=== PATIENT | female | born 1955 | race Hispanic/Latino ===

== ENCOUNTER 2018-01-11 02:59 | Inpatient (IN) | payer OTHER ==
[2018-01-11] VITALS (17 sets, daily range): BP systolic 66–135; BP diastolic 50–91
[~2018-01-11] VITALS: Ht 152.4 cm; Wt 83.8 kg
[2018-01-11] MEDS ORDERED: ATROPINE SULFATE 0.1 MG/ML 10 ML SYG IVP ONE (03:13)
[2018-01-11] MEDS ORDERED: LIDOCAINE HCL-MPF 2% 5ML VIAL ONE (03:13)
[2018-01-11] MEDS ORDERED: NITROGLYCERIN 5 MG/ML 10 ML VIAL IV ONE (03:13)
[2018-01-11] MEDS ORDERED: HEPARIN SODIUM 1000UNIT/ML 10ML VIAL ONE ×2 (03:13→06:07)
[2018-01-11] MEDS ORDERED: BIVALIRUDIN 250 MG/VIAL IV ONE (03:13)
[2018-01-11] MEDS ORDERED: DOPAMINE HCL 400 MG/D5%-WATER 0 ML IV ONE (03:14)
[2018-01-11] MEDS ORDERED: IOHEXOL 350 MG/ML 100ML INFUS..BTL IV ONE (03:14)
[2018-01-11] MEDS ORDERED: IOHEXOL-350 50ML VIAL IV ONE (03:14)
[2018-01-11] MEDS ORDERED: METOPROLOL TARTRATE 1 MG/ML 5ML VIAL IV ONE (04:14)
[2018-01-11] MEDS ORDERED: NITROGLYCERIN 50 MG/D5% WATER 1 BOT ONE ×2 (04:14→06:04)
[2018-01-11] MEDS ORDERED: SODIUM CHLORIDE 0.9% 1000ML 1,000 ML IV SCH ×3 (04:20→09:45)
[2018-01-11] MEDS ORDERED: METOPROLOL TARTRATE 25 MG TAB PO SCH (04:30)
[2018-01-11] MEDS ORDERED: DEXTROSE 50%-WATER 50 ML DISP.SYRIN IV PRN ×2 (04:30→09:45)
[2018-01-11] MEDS ORDERED: HEPARIN 25000 UNITS/250 ML D5W 250 ML IV PRN (04:30)
[2018-01-11] MEDS ORDERED: GLUCAGON 1MG KIT 1 MG ML IM PRN ×2 (04:30→09:45)
[2018-01-11 05:22] LABS: BASOPHILS % (AUTO) 0.4 % (0.0-5.0); EOSINOPHILS % (AUTO) 3.4 % (0.0-8.0); HEMATOCRIT 43.9 % (36-48); LYMPHOCYTES % (AUTO) 17.7 % (21.0-51.0); MEAN CORPUSCULAR HEMOGLOBIN 31.7 pg (27.0-33.0); MEAN CORPUSCULAR HGB CONC 33.9 g/dL (32.0-36.0); MEAN CORPUSCULAR VOLUME 93.6 fL (79-99); MONOCYTES % (AUTO) 7.2 % (3.0-13.0); NEUTROPHILS % (AUTO) 71.3 % (40.0-77.0); PLATELET COUNT (AUTO) 300 K/uL (130-400); RED BLOOD CELL COUNT(AUTO) 4.69 MIL/uL (4.00-5.50); RED CELL DISTRIBUTION WIDTH 13.3 % (11.0-15.5); WHITE BLOOD COUNT (AUTO) 13.1 K/uL (4.8-10.8)
[2018-01-11 05:40] LABS: HEMOGLOBIN A1C 6.5 % (4.0-6.0)
[2018-01-11] MEDS ORDERED: CLINDAMYCIN 600 MG/D5% WATER 50 ML IV ONE (05:48)
[2018-01-11 05:54] LABS: BASOPHILS % (AUTO) 1.1 % (0.0-5.0); EOSINOPHILS % (AUTO) 2.9 % (0.0-8.0); HEMATOCRIT 43.9 % (36-48); LYMPHOCYTES % (AUTO) 17.1 % (21.0-51.0); MEAN CORPUSCULAR HEMOGLOBIN 31.8 pg (27.0-33.0); MEAN CORPUSCULAR HGB CONC 33.6 g/dL (32.0-36.0); MEAN CORPUSCULAR VOLUME 94.5 fL (79-99); MONOCYTES % (AUTO) 7.5 % (3.0-13.0); NEUTROPHILS % (AUTO) 71.4 % (40.0-77.0); PLATELET COUNT (AUTO) 286 K/uL (130-400); RED BLOOD CELL COUNT(AUTO) 4.65 MIL/uL (4.00-5.50); WHITE BLOOD COUNT (AUTO) 13.5 K/uL (4.8-10.8)
[2018-01-11] MEDS ORDERED: CLINDAMYCIN 600 MG/D5% WATER 50 ML IV SCH (06:00)
[2018-01-11 06:05] LABS: ALBUMIN 3.6 g/dL (3.5-5.0); BILIRUBIN,TOTAL 0.5 mg/dL (0.2-1.0); CREATININE 0.7 mg/dL (0.5-1.5); MAGNESIUM 2.1 mg/dL (1.80-2.40); POTASSIUM 4.1 mmol/L (3.5-5.1); TOTAL PROTEIN, SERUM 7.7 g/dL (6.0-8.3)
[2018-01-11] MEDS ORDERED: EPINEPHRINE 1 MG/ML AMPULE ONE (06:07)
[2018-01-11] MEDS ORDERED: LIDOCAINE PF 2% 5ML ABBOJECT ONE ×2 (06:07→10:04)
[2018-01-11] MEDS ORDERED: SODIUM BICARB 50MEQ 50ML VIAL ONE (06:07)
[2018-01-11] MEDS ORDERED: AMINOCAPROIC ACID 250 MG/ML 20 ML VIAL IV ONE ×2 (06:07→12:00)
[2018-01-11] MEDS ORDERED: NOREPINEPHRINE BITARTRATE 1 MG/1 ML ML IV ONE ×4 (06:07→12:59)
[2018-01-11] MEDS ORDERED: ESMOLOL HCL 10 MG/ML 10 ML VIAL ONE (06:07)
[2018-01-11 06:08] LABS: TROPONIN I 38.94 ng/mL (0.00-0.06)
[2018-01-11] MEDS ORDERED: MIDAZOLAM HCL 1 MG/ML 5ML VIAL ONE (06:08)
[2018-01-11] MEDS ORDERED: VASOPRESSIN 20 UNITS/ML 1ML VIAL ONE (06:08)
[2018-01-11] MEDS ORDERED: FENTANYL CITRATE PF 50 MCG/1 ML 20ML VIAL IJ ONE ×3 (06:08→11:07)
[2018-01-11] MEDS ORDERED: PROPOFOL 10 MG/ML 20ML VIAL IV ONE (06:08)
[2018-01-11 06:09] LABS: MAGNESIUM 2.1 mg/dL (1.80-2.40); PHOSPHORUS 3.4 mg/dL (2.5-4.9)
[2018-01-11] MEDS ORDERED: THROMBIN-JMI 5000 UNIT/VIAL TP ONE (06:13)
[2018-01-11] MEDS ORDERED: DELNIDO FORMULA 0 BAG IV ONE (06:13)
[2018-01-11] MEDS ORDERED: ROCURONIUM 10MG/1ML SYR 10 MG/ML ML ONE ×2 (06:14→11:05)
[2018-01-11 06:15] LABS: INR 1.02 (0.85-1.15); PROTHROMBIN TIME 10.7 SEC (9.6-11.6)
[2018-01-11 06:37] LABS: B-TYPE NATRIURETIC PEPTIDE 106 pg/mL (0-100)
[2018-01-11] MEDS ORDERED: BACITRACIN 50,000 UNIT VIAL ONE (06:43)
[2018-01-11] MEDS ORDERED: OCTYL 2-CYANOACRYLATE 1 EACH TP ONE (06:43)
[2018-01-11] MEDS ORDERED: GLYCOPYRROLATE 1 MG/5 ML SYRINGE ONE (06:45)
[2018-01-11] MEDS ORDERED: LIDOCAINE HCL-MPF 1% 5ML AMP IJ ONE (06:59)
[2018-01-11 07:06] LABS: ABG BASE EXCESS -3.6 mmol/L (-2.0-3.0); ABG HCO3 18.1 mmol/L (21.0-28.0); ABG OXYGEN SATURATION 99.6 % (95.0-99.0); ABG PCO2 25 mmHg (32-45)
[2018-01-11 07:16] LABS: PARTIAL THROMBOPLASTIN TIME > 120.0 SEC (26.3-35.5)
[2018-01-11 07:56] LABS: ABG BASE EXCESS -0.4 mmol/L (-2.0-3.0); ABG HCO3 21.7 mmol/L (21.0-28.0); ABG OXYGEN SATURATION 99.3 % (95.0-99.0); ABG PCO2 28 mmHg (32-45)
[2018-01-11] MEDS ORDERED: AMIODARONE HCL 50 MG/ML 3 ML VIAL ONE (08:11)
[2018-01-11 08:17] LABS: ABG BASE EXCESS -1.7 mmol/L (-2.0-3.0); ABG HCO3 21.9 mmol/L (21.0-28.0); ABG OXYGEN SATURATION 99.4 % (95.0-99.0); ABG PCO2 34 mmHg (32-45)
[2018-01-11] MEDS: PANTOPRAZOLE SODIUM 40 MG TABLET.DR PO SCH (09:00)
[2018-01-11] MEDS ORDERED: ASPIRIN 325 MG TABLET PO SCH (09:00)
[2018-01-11] MEDS ORDERED: LISINOPRIL 5 MG TABLET PO SCH (09:00)
[2018-01-11 09:06] LABS: ABG HCO3 21.9 mmol/L (21.0-28.0); ABG OXYGEN SATURATION 98.6 % (95.0-99.0); ABG PCO2 34 mmHg (32-45)
[2018-01-11] MEDS ORDERED: ROCURONIUM BROMIDE 10MG/1ML 5ML VL ONE ×2 (09:28→11:08)
[2018-01-11] MEDS ORDERED: SODIUM CHLORIDE 0.9% 500ML 500 ML IV SCH (09:33)
[2018-01-11 09:39] LABS: ABG BASE EXCESS 2.9 mmol/L (-2.0-3.0); ABG HCO3 25.7 mmol/L (21.0-28.0); ABG OXYGEN SATURATION 98.3 % (95.0-99.0); ABG PCO2 33 mmHg (32-45)
[2018-01-11] MEDS ORDERED: SODIUM CHLORIDE 0.9% 10 ML VIAL IVP PRN (09:45)
[2018-01-11] MEDS ORDERED: ONDANSETRON HCL 4 MG/2 ML VIAL IV PRN (09:45)
[2018-01-11] MEDS ORDERED: PROPOFOL 1000 MG/100 ML 100 ML IV PRN (09:45)
[2018-01-11] MEDS ORDERED: EPINEPHRINE 8 MG in SODIUM CHLORIDE 0.9% 250 ML IV PRN (09:45)
[2018-01-11] MEDS ORDERED: ALBUMIN (HUMAN) 5% 250 ML IV PRN (09:45)
[2018-01-11] MEDS ORDERED: ACETAMINOPHEN 325 MG TAB PO PRN (09:45)
[2018-01-11] MEDS ORDERED: ACETAMINOPHEN 650 MG SUPPOSITORY RC PRN (09:45)
[2018-01-11] MEDS ORDERED: MORPHINE SULFATE 4 MG/1ML SYG IV PRN (09:45)
[2018-01-11] MEDS ORDERED: MORPHINE SULFATE 2 MG/ML 1ML SYG IV PRN (09:45)
[2018-01-11] MEDS ORDERED: NICARDIPINE HCL 100 MG in SODIUM CHLORIDE 0.9% 60 ML IV PRN (09:45)
[2018-01-11] MEDS ORDERED: INSULIN REGULAR, HUMAN 3ML 100 UNIT in SODIUM CHLORIDE 0.9% 99 ML IV SCH ×2 (09:45)
[2018-01-11] MEDS ORDERED: NOREPINEPHRINE 4MG/NS 250ML 250 ML IV PRN (09:45)
[2018-01-11] MEDS ORDERED: SODIUM CHLORIDE 0.9% 250 ML IV PRN (09:45)
[2018-01-11] MEDS ORDERED: NITROGLYCERIN 50 MG/D5% WATER 250 BOT IV SCH (09:45)
[2018-01-11] MEDS ORDERED: AMINOCAPROIC ACID 15,000 MG in SODIUM CHLORIDE 0.9% 250 ML IV SCH (09:45)
[2018-01-11 10:14] LABS: ABG BASE EXCESS -0.3 mmol/L (-2.0-3.0); ABG HCO3 23.3 mmol/L (21.0-28.0); ABG OXYGEN SATURATION 98.5 % (95.0-99.0); ABG PCO2 34 mmHg (32-45)
[2018-01-11] MEDS ORDERED: INSULIN HUMULIN R 100 UNIT/ML 3ML ONE (10:17)
[2018-01-11] MEDS ORDERED: PROTAMINE SULFATE 10 MG/ML 25ML VIAL IV ONE ×2 (10:25→10:39)
[2018-01-11 10:45] LABS: ABG BASE EXCESS 0.4 mmol/L (-2.0-3.0); ABG HCO3 24.8 mmol/L (21.0-28.0); ABG OXYGEN SATURATION 98.4 % (95.0-99.0); ABG PCO2 39 mmHg (32-45)
[2018-01-11 11:03] LABS: ABG BASE EXCESS -2.7 mmol/L (-2.0-3.0); ABG HCO3 22.1 mmol/L (21.0-28.0); ABG OXYGEN SATURATION 98.9 % (95.0-99.0); ABG PCO2 38 mmHg (32-45)
[2018-01-11 11:29] LABS: ABG BASE EXCESS -4.3 mmol/L (-2.0-3.0); ABG HCO3 21.2 mmol/L (21.0-28.0); ABG OXYGEN SATURATION 98.7 % (95.0-99.0); ABG PCO2 40 mmHg (32-45)
[2018-01-11] MEDS ORDERED: SODIUM BICARB 8.4% 50ML SYRINGE IVP ONE (12:00)
[2018-01-11] MEDS ORDERED: CALCIUM CHLORIDE 100 MG/ML 10 ML SYG IVP ONE (12:00)
[2018-01-11] MEDS ORDERED: ALBUMIN (HUMAN) 25% 50 ML IV ONE (12:00)
[2018-01-11] MEDS ORDERED: HEPARIN SODIUM 10000 UNIT/ML 1ML VIAL IJ ONE (12:00)
[2018-01-11] MEDS ORDERED: PHENYLEPHRINE HCL 10 MG/ML 1ML VIAL IV ONE (12:00)
[2018-01-11] MEDS ORDERED: MANNITOL 25% 50ML VIAL IV ONE (12:00)
[2018-01-11] MEDS ORDERED: HEPARIN SODIUM 1000UNIT/ML 10ML VIAL IV ONE ×2 (12:00)
[2018-01-11 12:02] LABS: ABG BASE EXCESS -0.6 mmol/L (-2.0-3.0); ABG OXYGEN SATURATION 98.7 % (95.0-99.0); ABG PCO2 33 mmHg (32-45)
[2018-01-11 12:23] LABS: ABG OXYGEN SATURATION 98.5 % (95.0-99.0); ABG PCO2 30 mmHg (32-45)
[2018-01-11 12:43] LABS: ABG BASE EXCESS -4.1 mmol/L (-2.0-3.0); ABG HCO3 20.9 mmol/L (21.0-28.0); ABG OXYGEN SATURATION 98.7 % (95.0-99.0); ABG PCO2 38 mmHg (32-45)
[2018-01-11 14:08] LABS: ABG BASE EXCESS 0.4 mmol/L (-2.0-3.0); ABG HCO3 25.4 mmol/L (21.0-28.0); ABG OXYGEN SATURATION 98.4 % (95.0-99.0); ABG PCO2 43 mmHg (32-45)
[2018-01-11] MEDS ORDERED: PHARMACY COMMUNICATION MISC SCH (14:15)
[2018-01-11] MEDS ORDERED: NOREPINEPHRINE BITARTRATE 8 MG in DEXTROSE 5%-WATER 250 ML IV PRN (14:15)
[2018-01-11 14:20] LABS: HEMATOCRIT 21.8 % (36-48); MEAN CORPUSCULAR HEMOGLOBIN 30.5 pg (27.0-33.0); MEAN CORPUSCULAR HGB CONC 34.1 g/dL (32.0-36.0); MEAN CORPUSCULAR VOLUME 89.6 fL (79-99); PLATELET COUNT (AUTO) 234 K/uL (130-400); RED BLOOD CELL COUNT(AUTO) 2.43 MIL/uL (4.00-5.50); RED CELL DISTRIBUTION WIDTH 14.3 % (11.0-15.5); WHITE BLOOD COUNT (AUTO) 18.2 K/uL (4.8-10.8)
[2018-01-11] MEDS: CALCIUM GLUCONATE 1 GM in SODIUM CHLORIDE 0.9% 50 ML IV PRN ×3 (14:21→16:49)
[2018-01-11] MEDS: POTASSIUM CHLORIDE 20MEQ/100ML 100 ML IV PRN ×3 (14:23→20:43)
[2018-01-11 14:31] LABS: INR 1.3 (0.85-1.15); PARTIAL THROMBOPLASTIN TIME 30.5 SEC (26.3-35.5); PROTHROMBIN TIME 13.6 SEC (9.6-11.6)
[2018-01-11 14:52] LABS: CREATININE 1.1 mg/dL (0.5-1.5); MAGNESIUM 1.6 mg/dL (1.80-2.40); PHOSPHORUS 2.8 mg/dL (2.5-4.9); POTASSIUM 3.1 mmol/L (3.5-5.1)
[2018-01-11] MEDS: IPRATROPIUM/ALBUTEROL SULFATE 3 ML SOLUTION IH SCH ×3 (15:03→23:48)
[2018-01-11 15:24] LABS: TROPONIN I 87.7 ng/mL (0.00-0.06)
[2018-01-11] MEDS: MAGNESIUM 2GM PREMIX 50ML 50 ML IV PRN (15:31)
[2018-01-11 16:38] LABS: ABG BASE EXCESS -5.3 mmol/L (-2.0-3.0); ABG HCO3 20.4 mmol/L (21.0-28.0); ABG OXYGEN SATURATION 96.7 % (95.0-99.0); ABG PCO2 40 mmHg (32-45)
[2018-01-11] MEDS: SODIUM BICARB 50MEQ 50ML VIAL IV PRN ×3 (16:44→21:08)
[2018-01-11] MEDS ORDERED: VASOPRESSIN 20 UNITS in DEXTROSE 5%-WATER 50 ML IV PRN (17:15)
[2018-01-11 17:17] LABS: INR 1.28 (0.85-1.15); PARTIAL THROMBOPLASTIN TIME 27.5 SEC (26.3-35.5); PROTHROMBIN TIME 13.4 SEC (9.6-11.6)
[2018-01-11] MEDS ORDERED: VASOPRESSIN 20 UNITS in SODIUM CHLORIDE 0.9% 50 ML IV PRN (17:34)
[2018-01-11] MEDS: CLINDAMYCIN 900 MG/D5% WATER 50 ML IV SCH (18:06)
[2018-01-11 18:56] LABS: ABG BASE EXCESS -1.9 mmol/L (-2.0-3.0); ABG HCO3 23.6 mmol/L (21.0-28.0); ABG OXYGEN SATURATION 95.8 % (95.0-99.0); ABG PCO2 44 mmHg (32-45)
[2018-01-11] MEDS ORDERED: CALCIUM GLUCONATE 1 GM/10 ML VIAL IV ONE ×2 (19:27→22:18)
[2018-01-11 20:05] LABS: ABG BASE EXCESS 2.3 mmol/L (-2.0-3.0); ABG OXYGEN SATURATION 96.6 % (95.0-99.0); ABG PCO2 43 mmHg (32-45)
[2018-01-11 20:52] LABS: ABG BASE EXCESS -4.1 mmol/L (-2.0-3.0); ABG HCO3 22.9 mmol/L (21.0-28.0); ABG OXYGEN SATURATION 93.3 % (95.0-99.0); ABG PCO2 51 mmHg (32-45)
[2018-01-11 22:17] LABS: ABG BASE EXCESS 3.7 mmol/L (-2.0-3.0); ABG HCO3 27.9 mmol/L (21.0-28.0); ABG PCO2 41 mmHg (32-45)
[2018-01-11 23:13] LABS: BASOPHILS % (AUTO) 0.7 % (0.0-5.0); HEMATOCRIT 23.9 % (36-48); LYMPHOCYTES % (AUTO) 11.6 % (21.0-51.0); MEAN CORPUSCULAR HEMOGLOBIN 28.8 pg (27.0-33.0); MEAN CORPUSCULAR HGB CONC 34.4 g/dL (32.0-36.0); MEAN CORPUSCULAR VOLUME 83.7 fL (79-99); MONOCYTES % (AUTO) 11.2 % (3.0-13.0); NEUTROPHILS % (AUTO) 76.5 % (40.0-77.0); PLATELET COUNT (AUTO) 205 K/uL (130-400); RED BLOOD CELL COUNT(AUTO) 2.86 MIL/uL (4.00-5.50); RED CELL DISTRIBUTION WIDTH 16.2 % (11.0-15.5)
[2018-01-11 23:23] LABS: CREATININE 1.3 mg/dL (0.5-1.5); POTASSIUM 4.1 mmol/L (3.5-5.1)
[2018-01-11 23:25] LABS: INR 1.15 (0.85-1.15); PARTIAL THROMBOPLASTIN TIME 34.5 SEC (26.3-35.5)
[2018-01-11 23:27] LABS: ALBUMIN 2.4 g/dL (3.5-5.0); MAGNESIUM 1.8 mg/dL (1.80-2.40); TOTAL PROTEIN, SERUM 4.8 g/dL (6.0-8.3)
[2018-01-11 23:29] LABS: ABG BASE EXCESS 0.4 mmol/L (-2.0-3.0); ABG HCO3 24.6 mmol/L (21.0-28.0); ABG OXYGEN SATURATION 96.5 % (95.0-99.0); ABG PCO2 38 mmHg (32-45)
[2018-01-12] VITALS (35 sets, daily range): BP systolic 72–157; BP diastolic 52–75
[2018-01-12] MEDS ORDERED: ACETAMINOPHEN ELIXIR 325 MG/10.15ML UDCUP ONE (00:38)
[2018-01-12 01:18] LABS: ABG BASE EXCESS 2.2 mmol/L (-2.0-3.0); ABG HCO3 26.9 mmol/L (21.0-28.0); ABG OXYGEN SATURATION 96.1 % (95.0-99.0); ABG PCO2 42 mmHg (32-45)
[2018-01-12] MEDS: CLINDAMYCIN 900 MG/D5% WATER 50 ML IV SCH ×2 (01:23→09:58)
[2018-01-12 02:21] LABS: ABG BASE EXCESS 2.5 mmol/L (-2.0-3.0); ABG OXYGEN SATURATION 96.7 % (95.0-99.0); ABG PCO2 36 mmHg (32-45)
[2018-01-12 02:54] LABS: APPEARANCE,URINE Clear (CLEAR); BILIRUBIN,URINE Negative (NEGATIVE); COLOR,URINE Dark Yellow (YELLOW); GLUCOSE, URINE (UA) Negative (NEGATIVE); KETONES,URINE Trace mg/dL (NEGATIVE); LEUKOCYTE ESTERASE ,URINE Negative (NEGATIVE); NITRATE,URINE Negative (NEGATIVE); OCCULT BLOOD,URINE Small (NEGATIVE); PROTEIN,URINE POS 1+ (NEGATIVE)
[2018-01-12 03:17] LABS: ABG BASE EXCESS 2.7 mmol/L (-2.0-3.0); ABG HCO3 26.5 mmol/L (21.0-28.0); ABG OXYGEN SATURATION 96.4 % (95.0-99.0); ABG PCO2 37 mmHg (32-45)
[2018-01-12 03:27] LABS: BACTERIA,URINE Few /HPF (None Seen); SQUAMOUS EPITHELIAL CELL,UR 0-2 /HPF (0-2); WBC,URINE 0-1 /HPF (0-1)
[2018-01-12] MEDS ORDERED: ALBUMIN (HUMAN) 5% 250 ML IV ONE (03:45)
[2018-01-12] MEDS ORDERED: VANCOMYCIN 1GM+NS 250ML 250 ML IV ONE (03:51)
[2018-01-12 03:55] LABS: HEMATOCRIT 22.4 % (36-48); MEAN CORPUSCULAR HEMOGLOBIN 28.1 pg (27.0-33.0); MEAN CORPUSCULAR VOLUME 82.7 fL (79-99); NUCLEATED RED BLOOD CELLS 0.1 % (0.0-0.19); PLATELET COUNT (AUTO) 155 K/uL (130-400); RED BLOOD CELL COUNT(AUTO) 2.71 MIL/uL (4.00-5.50); RED CELL DISTRIBUTION WIDTH 16.4 % (11.0-15.5); WHITE BLOOD COUNT (AUTO) 13.2 K/uL (4.8-10.8)
[2018-01-12] MEDS ORDERED: VANCOMYCIN 1GM+NS 250ML 250 ML IV SCH (04:00)
[2018-01-12 04:15] LABS: ALBUMIN 2.4 g/dL (3.5-5.0); BILIRUBIN,TOTAL 0.8 mg/dL (0.2-1.0); CREATININE 1.3 mg/dL (0.5-1.5); INR 1.19 (0.85-1.15); MAGNESIUM 1.7 mg/dL (1.80-2.40); PARTIAL THROMBOPLASTIN TIME 29.9 SEC (26.3-35.5); PHOSPHORUS 3.8 mg/dL (2.5-4.9); POTASSIUM 3.7 mmol/L (3.5-5.1); PROTHROMBIN TIME 12.5 SEC (9.6-11.6); TOTAL PROTEIN, SERUM 4.8 g/dL (6.0-8.3)
[2018-01-12 05:34] LABS: ABG HCO3 27.7 mmol/L (21.0-28.0); ABG OXYGEN SATURATION 94.5 % (95.0-99.0); ABG PCO2 43 mmHg (32-45)
[2018-01-12] MEDS ORDERED: VANCOMYCIN PROTOCOL PER PHARMACY IV SCH (05:45)
[2018-01-12] MEDS: IPRATROPIUM/ALBUTEROL SULFATE 3 ML SOLUTION IH SCH ×3 (06:15→18:50)
[2018-01-12] MEDS ORDERED: COMPOUND IV REFRIGERATED 1 EACH IVSOLN MISC PRN (06:45)
[2018-01-12] MEDS ORDERED: CALCIUM GLUCONATE 1 GM/10 ML VIAL IV ONE (06:47)
[2018-01-12 07:29] LABS: ABG BASE EXCESS -0.1 mmol/L (-2.0-3.0); ABG HCO3 24.1 mmol/L (21.0-28.0); ABG PCO2 37 mmHg (32-45)
[2018-01-12] MEDS: PANTOPRAZOLE SODIUM 40 MG TABLET.DR PO SCH ×2 (08:49→09:58)
[2018-01-12] MEDS: ASPIRIN 81MG TAB.CHEW PO SCH (09:58)
[2018-01-12] MEDS ORDERED: DEXTROSE 5%-WATER 1,000 ML IV SCH (10:00)
[2018-01-12] MEDS ORDERED: HEPARIN SODIUM SQ SCH (10:45)
[2018-01-12] MEDS ORDERED: DEXTROSE 5% SQ SCH (10:45)
[2018-01-12] MEDS ORDERED: WATER SQ SCH (10:45)
[2018-01-12] MEDS: HEPARIN SODIUM IV SCH (10:56)
[2018-01-12] MEDS: DEXTROSE 5% IV SCH (10:56)
[2018-01-12] MEDS: WATER IV SCH (10:56)
[2018-01-12] MEDS: ALBUMIN (HUMAN) 25% 50 ML IV SCH (11:20)
[2018-01-12 11:25] LABS: ABG BASE EXCESS 1.9 mmol/L (-2.0-3.0); ABG PCO2 39 mmHg (32-45)
[2018-01-12] MEDS ORDERED: FUROSEMIDE 10 MG/ML 2ML VIAL IV SCH (11:30)
[2018-01-12 13:14] LABS: BASOPHILS % (AUTO) 0.3 % (0.0-5.0); HEMATOCRIT 25.5 % (36-48); LYMPHOCYTES % (AUTO) 15.7 % (21.0-51.0); MEAN CORPUSCULAR HEMOGLOBIN 28.5 pg (27.0-33.0); MEAN CORPUSCULAR HGB CONC 33.7 g/dL (32.0-36.0); MEAN CORPUSCULAR VOLUME 84.7 fL (79-99); MONOCYTES % (AUTO) 9.4 % (3.0-13.0); NEUTROPHILS % (AUTO) 74.6 % (40.0-77.0); NUCLEATED RED BLOOD CELLS 0.2 % (0.0-0.19); PLATELET COUNT (AUTO) 112 K/uL (130-400); RED BLOOD CELL COUNT(AUTO) 3.01 MIL/uL (4.00-5.50); RED CELL DISTRIBUTION WIDTH 16.2 % (11.0-15.5); WHITE BLOOD COUNT (AUTO) 16.6 K/uL (4.8-10.8)
[2018-01-12 13:21] LABS: CREATININE 1.1 mg/dL (0.5-1.5); MAGNESIUM 1.8 mg/dL (1.80-2.40); POTASSIUM 3.4 mmol/L (3.5-5.1)
[2018-01-12] MEDS ORDERED: CALCIUM CHLORIDE 100 MG/ML 10 ML SYG IVP PRN (13:30)
[2018-01-12 13:33] LABS: INR 1.23 (0.85-1.15); PARTIAL THROMBOPLASTIN TIME 35.5 SEC (26.3-35.5); PROTHROMBIN TIME 12.9 SEC (9.6-11.6)
[2018-01-12] MEDS: POTASSIUM CHLORIDE 20MEQ/100ML 100 ML IV PRN ×3 (13:42→22:06)
[2018-01-12] MEDS: CALCIUM GLUCONATE 1 GM in SODIUM CHLORIDE 0.9% 50 ML IV PRN ×2 (14:04→17:00)
[2018-01-12] MEDS: TRAMADOL HCL 50 MG TABLET PO PRN (14:12)
[2018-01-12] MEDS: MORPHINE SULFATE 2 MG/ML 1ML SYG IVP PRN (14:53)
[2018-01-12] MEDS: MAGNESIUM 2GM PREMIX 50ML 50 ML IV PRN (14:58)
[2018-01-12 15:54] LABS: ABG BASE EXCESS 4.5 mmol/L (-2.0-3.0); ABG HCO3 27.1 mmol/L (21.0-28.0); ABG OXYGEN SATURATION 95.7 % (95.0-99.0); ABG PCO2 34 mmHg (32-45)
[2018-01-12 16:27] LABS: BASOPHILS % (AUTO) 0.2 % (0.0-5.0); HEMATOCRIT 22.2 % (36-48); LYMPHOCYTES % (AUTO) 15.9 % (21.0-51.0); MEAN CORPUSCULAR HEMOGLOBIN 28.5 pg (27.0-33.0); MEAN CORPUSCULAR HGB CONC 33.9 g/dL (32.0-36.0); MEAN CORPUSCULAR VOLUME 84.1 fL (79-99); MONOCYTES % (AUTO) 11.7 % (3.0-13.0); NEUTROPHILS % (AUTO) 72.2 % (40.0-77.0); NUCLEATED RED BLOOD CELLS 0.2 % (0.0-0.19); PLATELET COUNT (AUTO) 94 K/uL (130-400); RED BLOOD CELL COUNT(AUTO) 2.64 MIL/uL (4.00-5.50); RED CELL DISTRIBUTION WIDTH 16.1 % (11.0-15.5); WHITE BLOOD COUNT (AUTO) 14.8 K/uL (4.8-10.8)
[2018-01-12 16:40] LABS: INR 1.28 (0.85-1.15); PARTIAL THROMBOPLASTIN TIME 49.1 SEC (26.3-35.5); PROTHROMBIN TIME 13.4 SEC (9.6-11.6)
[2018-01-12 16:46] LABS: CREATININE 1.1 mg/dL (0.5-1.5); MAGNESIUM 1.8 mg/dL (1.80-2.40); POTASSIUM 3.6 mmol/L (3.5-5.1)
[2018-01-12 20:54] LABS: ABG BASE EXCESS 5.5 mmol/L (-2.0-3.0); ABG HCO3 29.5 mmol/L (21.0-28.0); ABG OXYGEN SATURATION 94.3 % (95.0-99.0); ABG PCO2 41 mmHg (32-45)
[2018-01-12 21:06] LABS: BASOPHILS % (AUTO) 0.2 % (0.0-5.0); HEMATOCRIT 25.9 % (36-48); LYMPHOCYTES % (AUTO) 15.9 % (21.0-51.0); MEAN CORPUSCULAR HEMOGLOBIN 28.4 pg (27.0-33.0); MEAN CORPUSCULAR HGB CONC 33.6 g/dL (32.0-36.0); MEAN CORPUSCULAR VOLUME 84.5 fL (79-99); MONOCYTES % (AUTO) 9.3 % (3.0-13.0); NEUTROPHILS % (AUTO) 74.6 % (40.0-77.0); NUCLEATED RED BLOOD CELLS 0.2 % (0.0-0.19); PLATELET COUNT (AUTO) 84 K/uL (130-400); RED BLOOD CELL COUNT(AUTO) 3.07 MIL/uL (4.00-5.50); RED CELL DISTRIBUTION WIDTH 15.7 % (11.0-15.5); WHITE BLOOD COUNT (AUTO) 15.1 K/uL (4.8-10.8)
[2018-01-12] MEDS: FUROSEMIDE 10 MG/ML 2ML VIAL IV SCH (21:12)
[2018-01-12] MEDS: ATORVASTATIN CALCIUM 40 MG TABLET PO SCH (21:14)
[2018-01-12] MEDS: VANCOMYCIN 1.25 GM in SODIUM CHLORIDE 0.9% 250 ML IV SCH (21:14)
[2018-01-12 21:20] LABS: INR 1.28 (0.85-1.15); PARTIAL THROMBOPLASTIN TIME 53.3 SEC (26.3-35.5); PROTHROMBIN TIME 13.4 SEC (9.6-11.6)
[2018-01-12 21:26] LABS: CREATININE 0.9 mg/dL (0.5-1.5); MAGNESIUM 2.1 mg/dL (1.80-2.40); POTASSIUM 3.9 mmol/L (3.5-5.1)
[2018-01-12] MEDS: FUROSEMIDE 100 MG in SODIUM CHLORIDE 0.9% 90 ML IV SCH (21:56)
[2018-01-13] VITALS (35 sets, daily range): BP systolic 92–208; BP diastolic 49–110
[2018-01-13] MEDS: IPRATROPIUM/ALBUTEROL SULFATE 3 ML SOLUTION IH SCH ×5 (00:17→23:42)
[2018-01-13 00:24] LABS: ABG BASE EXCESS 5.8 mmol/L (-2.0-3.0); ABG HCO3 29.1 mmol/L (21.0-28.0); ABG OXYGEN SATURATION 91.8 % (95.0-99.0); ABG PCO2 38 mmHg (32-45)
[2018-01-13 00:31] LABS: HEMATOCRIT 27.4 % (36-48); MEAN CORPUSCULAR HEMOGLOBIN 29.1 pg (27.0-33.0); MEAN CORPUSCULAR HGB CONC 34.5 g/dL (32.0-36.0); MEAN CORPUSCULAR VOLUME 84.6 fL (79-99); NUCLEATED RED BLOOD CELLS 0.4 % (0.0-0.19); PLATELET COUNT (AUTO) 94 K/uL (130-400); RED BLOOD CELL COUNT(AUTO) 3.24 MIL/uL (4.00-5.50); RED CELL DISTRIBUTION WIDTH 16.1 % (11.0-15.5); WHITE BLOOD COUNT (AUTO) 16.9 K/uL (4.8-10.8)
[2018-01-13 00:37] LABS: CREATININE 0.9 mg/dL (0.5-1.5); MAGNESIUM 1.9 mg/dL (1.80-2.40); POTASSIUM 3.5 mmol/L (3.5-5.1)
[2018-01-13 00:38] LABS: INR 1.25 (0.85-1.15); PARTIAL THROMBOPLASTIN TIME 50.5 SEC (26.3-35.5); PROTHROMBIN TIME 13.1 SEC (9.6-11.6)
[2018-01-13] MEDS: MAGNESIUM 2GM PREMIX 50ML 50 ML IV PRN (00:48)
[2018-01-13] MEDS: POTASSIUM CHLORIDE 20MEQ/100ML 100 ML IV PRN ×8 (00:48→22:06)
[2018-01-13 04:03] LABS: ABG BASE EXCESS 6.1 mmol/L (-2.0-3.0); ABG HCO3 29.2 mmol/L (21.0-28.0); ABG PCO2 37 mmHg (32-45)
[2018-01-13 04:17] LABS: BASOPHILS % (AUTO) 0.3 % (0.0-5.0); HEMATOCRIT 26.5 % (36-48); LYMPHOCYTES % (AUTO) 14.1 % (21.0-51.0); MEAN CORPUSCULAR HEMOGLOBIN 29.2 pg (27.0-33.0); MEAN CORPUSCULAR HGB CONC 34.6 g/dL (32.0-36.0); MEAN CORPUSCULAR VOLUME 84.5 fL (79-99); MONOCYTES % (AUTO) 8.7 % (3.0-13.0); NEUTROPHILS % (AUTO) 76.9 % (40.0-77.0); NUCLEATED RED BLOOD CELLS 0.5 % (0.0-0.19); PLATELET COUNT (AUTO) 100 K/uL (130-400); RED BLOOD CELL COUNT(AUTO) 3.13 MIL/uL (4.00-5.50); RED CELL DISTRIBUTION WIDTH 16.1 % (11.0-15.5); WHITE BLOOD COUNT (AUTO) 18.2 K/uL (4.8-10.8)
[2018-01-13 04:30] LABS: INR 1.21 (0.85-1.15); PARTIAL THROMBOPLASTIN TIME 48.3 SEC (26.3-35.5); PROTHROMBIN TIME 12.7 SEC (9.6-11.6)
[2018-01-13 04:54] LABS: ALBUMIN 2.8 g/dL (3.5-5.0); BILIRUBIN,TOTAL 0.9 mg/dL (0.2-1.0); CREATININE 0.9 mg/dL (0.5-1.5); MAGNESIUM 2.4 mg/dL (1.80-2.40); POTASSIUM 3.6 mmol/L (3.5-5.1); TOTAL PROTEIN, SERUM 5.5 g/dL (6.0-8.3)
[2018-01-13] MEDS: CALCIUM GLUCONATE 1 GM in SODIUM CHLORIDE 0.9% 50 ML IV PRN ×4 (06:48→21:47)
[2018-01-13] MEDS ORDERED: MEROPENEM 1 GM VIAL IVP SCH (07:15)
[2018-01-13] MEDS: MEROPENEM 1 GM VIAL IVP SCH ×2 (07:30→21:24)
[2018-01-13 07:55] LABS: ABG BASE EXCESS 7.5 mmol/L (-2.0-3.0); ABG HCO3 30.5 mmol/L (21.0-28.0); ABG OXYGEN SATURATION 94.7 % (95.0-99.0); ABG PCO2 37 mmHg (32-45)
[2018-01-13 08:00] LABS: NUCLEATED RED BLOOD CELLS 0.4 % (0.0-0.19); PLATELET COUNT (AUTO) 94 K/uL (130-400)
[2018-01-13 08:05] LABS: BASOPHILS % (AUTO) 0.3 % (0.0-5.0); HEMATOCRIT 25.5 % (36-48); LYMPHOCYTES % (AUTO) 13.7 % (21.0-51.0); MEAN CORPUSCULAR HEMOGLOBIN 29.2 pg (27.0-33.0); MEAN CORPUSCULAR HGB CONC 34.4 g/dL (32.0-36.0); MEAN CORPUSCULAR VOLUME 84.7 fL (79-99); MONOCYTES % (AUTO) 8.1 % (3.0-13.0); NEUTROPHILS % (AUTO) 77.9 % (40.0-77.0); RED BLOOD CELL COUNT(AUTO) 3.01 MIL/uL (4.00-5.50); RED CELL DISTRIBUTION WIDTH 16.1 % (11.0-15.5); WHITE BLOOD COUNT (AUTO) 18.8 K/uL (4.8-10.8)
[2018-01-13] MEDS: ASPIRIN 81MG TAB.CHEW PO SCH (08:09)
[2018-01-13] MEDS: PANTOPRAZOLE SODIUM 40 MG TABLET.DR PO SCH ×2 (08:09→09:00)
[2018-01-13 08:15] LABS: ALBUMIN 2.7 g/dL (3.5-5.0); BILIRUBIN,TOTAL 0.8 mg/dL (0.2-1.0); CREATININE 0.9 mg/dL (0.5-1.5); MAGNESIUM 2.1 mg/dL (1.80-2.40); TOTAL PROTEIN, SERUM 5.3 g/dL (6.0-8.3)
[2018-01-13 08:17] LABS: INR 1.19 (0.85-1.15); PARTIAL THROMBOPLASTIN TIME 46.6 SEC (26.3-35.5); PROTHROMBIN TIME 12.5 SEC (9.6-11.6)
[2018-01-13] MEDS: MORPHINE SULFATE 2 MG/ML 1ML SYG IVP PRN ×2 (08:40→21:36)
[2018-01-13] MEDS: FUROSEMIDE 10 MG/ML 2ML VIAL IV SCH (09:00)
[2018-01-13] MEDS: ALBUMIN (HUMAN) 25% 50 ML IV SCH ×3 (09:05→21:25)
[2018-01-13] MEDS: TRAMADOL HCL 50 MG TABLET PO PRN (10:04)
[2018-01-13] MEDS: HEPARIN SODIUM IV SCH (10:45)
[2018-01-13] MEDS: DEXTROSE 5% IV SCH (10:45)
[2018-01-13] MEDS: WATER IV SCH (10:45)
[2018-01-13 11:53] LABS: BASOPHILS % (AUTO) 0.3 % (0.0-5.0); HEMATOCRIT 23.6 % (36-48); MEAN CORPUSCULAR HEMOGLOBIN 29.2 pg (27.0-33.0); MEAN CORPUSCULAR HGB CONC 34.3 g/dL (32.0-36.0); MEAN CORPUSCULAR VOLUME 85.3 fL (79-99); MONOCYTES % (AUTO) 8.2 % (3.0-13.0); NEUTROPHILS % (AUTO) 77.5 % (40.0-77.0); NUCLEATED RED BLOOD CELLS 0.6 % (0.0-0.19); PLATELET COUNT (AUTO) 84 K/uL (130-400); RED BLOOD CELL COUNT(AUTO) 2.77 MIL/uL (4.00-5.50); RED CELL DISTRIBUTION WIDTH 16.3 % (11.0-15.5); WHITE BLOOD COUNT (AUTO) 18.4 K/uL (4.8-10.8)
[2018-01-13 12:06] LABS: INR 1.16 (0.85-1.15); PARTIAL THROMBOPLASTIN TIME 48.6 SEC (26.3-35.5); PROTHROMBIN TIME 12.1 SEC (9.6-11.6)
[2018-01-13 12:20] LABS: ABG BASE EXCESS 7.2 mmol/L (-2.0-3.0); ABG HCO3 31.8 mmol/L (21.0-28.0); ABG OXYGEN SATURATION 97.4 % (95.0-99.0); ABG PCO2 45 mmHg (32-45)
[2018-01-13 12:22] LABS: BILIRUBIN,DIRECT 0.3 mg/dL (0.0-0.3); BILIRUBIN,TOTAL 0.8 mg/dL (0.2-1.0); MAGNESIUM 2.1 mg/dL (1.80-2.40); PHOSPHORUS 2.7 mg/dL (2.5-4.9); POTASSIUM 4.1 mmol/L (3.5-5.1)
[2018-01-13] MEDS: FUROSEMIDE 100 MG in SODIUM CHLORIDE 0.9% 90 ML IV SCH (15:32)
[2018-01-13] MEDS: DOBUTAMINE 250MG/D5 250ML 250 ML IV SCH (17:00)
[2018-01-13 17:29] LABS: ABG BASE EXCESS 5.7 mmol/L (-2.0-3.0); ABG HCO3 29.3 mmol/L (21.0-28.0); ABG OXYGEN SATURATION 95.5 % (95.0-99.0); ABG PCO2 39 mmHg (32-45)
[2018-01-13 17:34] LABS: BASOPHILS % (AUTO) 0.3 % (0.0-5.0); HEMATOCRIT 21.6 % (36-48); LYMPHOCYTES % (AUTO) 16.6 % (21.0-51.0); MEAN CORPUSCULAR HEMOGLOBIN 29.3 pg (27.0-33.0); MEAN CORPUSCULAR HGB CONC 34.4 g/dL (32.0-36.0); MEAN CORPUSCULAR VOLUME 85.3 fL (79-99); MONOCYTES % (AUTO) 7.7 % (3.0-13.0); NEUTROPHILS % (AUTO) 75.4 % (40.0-77.0); NUCLEATED RED BLOOD CELLS 1.1 % (0.0-0.19); PLATELET COUNT (AUTO) 80 K/uL (130-400); RED BLOOD CELL COUNT(AUTO) 2.53 MIL/uL (4.00-5.50); RED CELL DISTRIBUTION WIDTH 16.3 % (11.0-15.5); WHITE BLOOD COUNT (AUTO) 16.2 K/uL (4.8-10.8)
[2018-01-13 17:43] LABS: MAGNESIUM 2.1 mg/dL (1.80-2.40); POTASSIUM 3.9 mmol/L (3.5-5.1)
[2018-01-13] MEDS: ATORVASTATIN CALCIUM 40 MG TABLET PO SCH (21:24)
[2018-01-13 21:33] LABS: ABG BASE EXCESS 5.8 mmol/L (-2.0-3.0); ABG HCO3 27.6 mmol/L (21.0-28.0); ABG OXYGEN SATURATION 99.1 % (95.0-99.0); ABG PCO2 32 mmHg (32-45)
[2018-01-13 21:47] LABS: MEAN CORPUSCULAR HEMOGLOBIN 29.4 pg (27.0-33.0); MEAN CORPUSCULAR HGB CONC 33.9 g/dL (32.0-36.0); MEAN CORPUSCULAR VOLUME 86.9 fL (79-99); NUCLEATED RED BLOOD CELLS 0.3 % (0.0-0.19); PLATELET COUNT (AUTO) 67 K/uL (130-400); RED BLOOD CELL COUNT(AUTO) 2.88 MIL/uL (4.00-5.50); WHITE BLOOD COUNT (AUTO) 14.5 K/uL (4.8-10.8)
[2018-01-13 21:59] LABS: CREATININE 0.9 mg/dL (0.5-1.5); POTASSIUM 3.8 mmol/L (3.5-5.1)
[2018-01-13 22:02] LABS: INR 1.05 (0.85-1.15); PARTIAL THROMBOPLASTIN TIME 43.9 SEC (26.3-35.5)
[2018-01-13] MEDS: VANCOMYCIN 1.25 GM in SODIUM CHLORIDE 0.9% 250 ML IV SCH (22:12)
[2018-01-13 22:14] LABS: PLATELET MORPHOLOGY COMMENT DECREASED
[2018-01-14] VITALS (23 sets, daily range): BP systolic 54–138; BP diastolic 44–86
[2018-01-14] MEDS: POTASSIUM CHLORIDE 20MEQ/100ML 100 ML IV PRN ×5 (00:04→23:18)
[2018-01-14] MEDS: MORPHINE SULFATE 2 MG/ML 1ML SYG IVP PRN ×4 (01:23→20:32)
[2018-01-14 05:29] LABS: ABG HCO3 32.8 mmol/L (21.0-28.0); ABG OXYGEN SATURATION 98.3 % (95.0-99.0); ABG PCO2 42 mmHg (32-45)
[2018-01-14 05:44] LABS: HEMATOCRIT 23.6 % (36-48); MEAN CORPUSCULAR HEMOGLOBIN 28.7 pg (27.0-33.0); MEAN CORPUSCULAR HGB CONC 32.9 g/dL (32.0-36.0); MEAN CORPUSCULAR VOLUME 87.1 fL (79-99); NUCLEATED RED BLOOD CELLS 0.3 % (0.0-0.19); PLATELET COUNT (AUTO) 56 K/uL (130-400); RED BLOOD CELL COUNT(AUTO) 2.71 MIL/uL (4.00-5.50); RED CELL DISTRIBUTION WIDTH 15.5 % (11.0-15.5)
[2018-01-14 05:55] LABS: INR 1.02 (0.85-1.15); PARTIAL THROMBOPLASTIN TIME 45.6 SEC (26.3-35.5); PROTHROMBIN TIME 10.7 SEC (9.6-11.6)
[2018-01-14 05:56] LABS: CREATININE 0.9 mg/dL (0.5-1.5); MAGNESIUM 1.9 mg/dL (1.80-2.40); PHOSPHORUS 2.7 mg/dL (2.5-4.9); POTASSIUM 3.9 mmol/L (3.5-5.1)
[2018-01-14] MEDS: MAGNESIUM 2GM PREMIX 50ML 50 ML IV PRN (06:05)
[2018-01-14] MEDS: IPRATROPIUM/ALBUTEROL SULFATE 3 ML SOLUTION IH SCH ×4 (06:20→23:08)
[2018-01-14] MEDS: CALCIUM GLUCONATE 1 GM in SODIUM CHLORIDE 0.9% 50 ML IV PRN (07:17)
[2018-01-14] MEDS: MEROPENEM 1 GM VIAL IVP SCH ×2 (07:52→19:29)
[2018-01-14] MEDS: DEXTROSE 5% IV SCH (10:45)
[2018-01-14] MEDS: WATER IV SCH (10:45)
[2018-01-14] MEDS: HEPARIN SODIUM IV SCH (10:45)
[2018-01-14] MEDS: PANTOPRAZOLE 40 MG/VIAL IVP SCH (10:46)
[2018-01-14] MEDS ORDERED: SODIUM CHLORIDE 0.9% 1000ML 1,000 ML IV ONE (11:12)
[2018-01-14] MEDS ORDERED: NOREPINEPHRINE BITARTRATE 1 MG/1 ML ML IV ONE ×2 (11:45→12:23)
[2018-01-14] MEDS ORDERED: KETAMINE 50MG/ML SYRINGE 50 MG/ML DISP.SYRIN IV ONE (12:13)
[2018-01-14] MEDS ORDERED: DELNIDO FORMULA 0 BAG IV ONE (12:26)
[2018-01-14 13:08] LABS: ABG BASE EXCESS 7.8 mmol/L (-2.0-3.0); ABG HCO3 29.1 mmol/L (21.0-28.0); ABG OXYGEN SATURATION 97.8 % (95.0-99.0); ABG PCO2 29 mmHg (32-45)
[2018-01-14] MEDS ORDERED: FENTANYL CITRATE PF 50 MCG/1 ML 2ML VIAL ONE ×2 (13:11→13:12)
[2018-01-14] MEDS ORDERED: BACITRACIN 50,000 UNIT VIAL ONE (13:33)
[2018-01-14] MEDS ORDERED: OCTYL 2-CYANOACRYLATE 1 EACH TP ONE (14:15)
[2018-01-14] MEDS ORDERED: GLYCOPYRROLATE 1 MG/5 ML SYRINGE ONE (14:22)
[2018-01-14 15:05] LABS: ABG BASE EXCESS 0.7 mmol/L (-2.0-3.0); ABG HCO3 25.1 mmol/L (21.0-28.0); ABG OXYGEN SATURATION 92.8 % (95.0-99.0); ABG PCO2 39 mmHg (32-45)
[2018-01-14 15:36] LABS: HEMATOCRIT 25.7 % (36-48); MEAN CORPUSCULAR HEMOGLOBIN 29.5 pg (27.0-33.0); MEAN CORPUSCULAR HGB CONC 33.5 g/dL (32.0-36.0); MEAN CORPUSCULAR VOLUME 88.1 fL (79-99); NUCLEATED RED BLOOD CELLS 0.5 % (0.0-0.19); PLATELET COUNT (AUTO) 92 K/uL (130-400); RED BLOOD CELL COUNT(AUTO) 2.92 MIL/uL (4.00-5.50); RED CELL DISTRIBUTION WIDTH 15.1 % (11.0-15.5); WHITE BLOOD COUNT (AUTO) 15.5 K/uL (4.8-10.8)
[2018-01-14 15:46] LABS: CREATININE 0.8 mg/dL (0.5-1.5); POTASSIUM 3.8 mmol/L (3.5-5.1)
[2018-01-14 15:49] LABS: MAGNESIUM 2.1 mg/dL (1.80-2.40); PHOSPHORUS 2.5 mg/dL (2.5-4.9)
[2018-01-14] MEDS: ASPIRIN 81MG TAB.CHEW PO SCH (16:21)
[2018-01-14] MEDS: DOBUTAMINE 250MG/D5 250ML 250 ML IV SCH (16:21)
[2018-01-14] MEDS: ATORVASTATIN CALCIUM 40 MG TABLET PO SCH (20:11)
[2018-01-14 20:57] LABS: PHOSPHORUS 3.2 mg/dL (2.5-4.9); POTASSIUM 3.8 mmol/L (3.5-5.1)
[2018-01-14] MEDS ORDERED: VANCOMYCIN 1.5 GM in SODIUM CHLORIDE 0.9% 250 ML IV SCH (21:30)
[2018-01-14] MEDS: TRAMADOL HCL 50 MG TABLET PO PRN (23:00)
[2018-01-15] VITALS (24 sets, daily range): BP systolic 91–125; BP diastolic 45–56
[2018-01-15 04:41] LABS: ABG BASE EXCESS 6.3 mmol/L (-2.0-3.0); ABG HCO3 30.9 mmol/L (21.0-28.0); ABG OXYGEN SATURATION 97.7 % (95.0-99.0); ABG PCO2 44 mmHg (32-45)
[2018-01-15 04:55] LABS: BASOPHILS % (AUTO) 0.4 % (0.0-5.0); EOSINOPHILS % (AUTO) 1.3 % (0.0-8.0); HEMATOCRIT 24.3 % (36-48); MEAN CORPUSCULAR HEMOGLOBIN 30.7 pg (27.0-33.0); MEAN CORPUSCULAR HGB CONC 34.3 g/dL (32.0-36.0); MEAN CORPUSCULAR VOLUME 89.4 fL (79-99); MONOCYTES % (AUTO) 8.2 % (3.0-13.0); NEUTROPHILS % (AUTO) 76.1 % (40.0-77.0); NUCLEATED RED BLOOD CELLS 0.4 % (0.0-0.19); PLATELET COUNT (AUTO) 113 K/uL (130-400); RED BLOOD CELL COUNT(AUTO) 2.72 MIL/uL (4.00-5.50); RED CELL DISTRIBUTION WIDTH 15.1 % (11.0-15.5); WHITE BLOOD COUNT (AUTO) 14.3 K/uL (4.8-10.8)
[2018-01-15 05:02] LABS: INR 1.02 (0.85-1.15); PARTIAL THROMBOPLASTIN TIME 27.5 SEC (26.3-35.5); PROTHROMBIN TIME 10.7 SEC (9.6-11.6)
[2018-01-15 05:06] LABS: CREATININE 0.8 mg/dL (0.5-1.5); PHOSPHORUS 2.6 mg/dL (2.5-4.9); POTASSIUM 3.9 mmol/L (3.5-5.1)
[2018-01-15] MEDS: POTASSIUM CHLORIDE 20MEQ/100ML 100 ML IV PRN ×3 (05:13→19:39)
[2018-01-15] MEDS: IPRATROPIUM/ALBUTEROL SULFATE 3 ML SOLUTION IH SCH ×4 (06:24→23:31)
[2018-01-15] MEDS: MEROPENEM 1 GM VIAL IVP SCH ×2 (06:49→18:30)
[2018-01-15 09:04] LABS: ABG BASE EXCESS 5.4 mmol/L (-2.0-3.0); ABG HCO3 28.9 mmol/L (21.0-28.0); ABG OXYGEN SATURATION 95.7 % (95.0-99.0); ABG PCO2 38 mmHg (32-45)
[2018-01-15] MEDS: PANTOPRAZOLE 40 MG/VIAL IVP SCH (09:29)
[2018-01-15] MEDS: VANCOMYCIN 1GM+NS 250ML 250 ML IV SCH ×2 (09:30→21:04)
[2018-01-15] MEDS: ASPIRIN 81MG TAB.CHEW PO SCH (09:30)
[2018-01-15] MEDS: TRAMADOL HCL 50 MG TABLET PO PRN ×2 (11:50→23:12)
[2018-01-15] MEDS ORDERED: PHARMACY COMMUNICATION MISC SCH ×2 (12:00→16:00)
[2018-01-15] MEDS ORDERED: DEXAMETHASONE SOD PHOSPHATE 10MG/ML 1ML VIAL IV SCH (12:45)
[2018-01-15] MEDS: ENOXAPARIN SODIUM 30 MG/0.3 ML SQ SCH (14:30)
[2018-01-15] MEDS: SPIRONOLACTONE 25 MG TAB PO SCH (15:22)
[2018-01-15] MEDS: FUROSEMIDE 10 MG/ML 2ML VIAL IV SCH ×2 (15:23→22:52)
[2018-01-15] MEDS: MORPHINE SULFATE 2 MG/ML 1ML SYG IVP PRN (15:25)
[2018-01-15] MEDS: PROPOFOL 1000 MG/100 ML IV PRN ×2 (15:55→20:36)
[2018-01-15] MEDS: DOBUTAMINE 250MG/D5 250ML 250 ML IV SCH ×2 (15:56→17:45)
[2018-01-15] MEDS ORDERED: DEXAMETHASONE SOD PHOSPHATE 4 MG/ML 1ML VIAL IVP SCH (16:45)
[2018-01-15] MEDS: ARTIFICAL TEARS SOL 15 ML OU SCH ×2 (18:33→21:43)
[2018-01-15] MEDS: CALCIUM GLUCONATE 1 GM in SODIUM CHLORIDE 0.9% 50 ML IV PRN (19:28)
[2018-01-15] MEDS: DOXYCYCLINE HYCLATE 100 MG TABLET PO SCH (19:52)
[2018-01-15] MEDS: ATORVASTATIN CALCIUM 40 MG TABLET PO SCH (19:52)
[2018-01-15] MEDS ORDERED: FUROSEMIDE 10 MG/ML 4ML VIAL IV SCH (21:00)
[2018-01-16] VITALS (24 sets, daily range): BP systolic 91–145; BP diastolic 45–58
[2018-01-16] MEDS: ARTIFICAL TEARS SOL 15 ML OU SCH ×4 (04:12→21:58)
[2018-01-16 04:24] LABS: ABG BASE EXCESS 4.9 mmol/L (-2.0-3.0); ABG HCO3 28.7 mmol/L (21.0-28.0); ABG OXYGEN SATURATION 91.8 % (95.0-99.0); ABG PCO2 40 mmHg (32-45)
[2018-01-16 04:29] LABS: HEMATOCRIT 24.8 % (36-48); MEAN CORPUSCULAR HEMOGLOBIN 29.5 pg (27.0-33.0); MEAN CORPUSCULAR VOLUME 89.3 fL (79-99); NUCLEATED RED BLOOD CELLS 0.6 % (0.0-0.19); PLATELET COUNT (AUTO) 118 K/uL (130-400); RED BLOOD CELL COUNT(AUTO) 2.78 MIL/uL (4.00-5.50); RED CELL DISTRIBUTION WIDTH 15.3 % (11.0-15.5); WHITE BLOOD COUNT (AUTO) 16.9 K/uL (4.8-10.8)
[2018-01-16] MEDS: CALCIUM GLUCONATE 1 GM in SODIUM CHLORIDE 0.9% 50 ML IV PRN ×2 (04:33→13:40)
[2018-01-16] MEDS: PROPOFOL 1000 MG/100 ML IV PRN (04:39)
[2018-01-16 04:47] LABS: ALBUMIN 2.5 g/dL (3.5-5.0); BILIRUBIN,TOTAL 1.2 mg/dL (0.2-1.0); CREATININE 0.7 mg/dL (0.5-1.5); MAGNESIUM 2.2 mg/dL (1.80-2.40); PHOSPHORUS 2.3 mg/dL (2.5-4.9); POTASSIUM 3.9 mmol/L (3.5-5.1); TOTAL PROTEIN, SERUM 5.8 g/dL (6.0-8.3)
[2018-01-16] MEDS: POTASSIUM CHLORIDE 20MEQ/100ML 100 ML IV PRN ×5 (05:02→22:30)
[2018-01-16] MEDS: FUROSEMIDE 10 MG/ML 2ML VIAL IV SCH (05:55)
[2018-01-16] MEDS: IPRATROPIUM/ALBUTEROL SULFATE 3 ML SOLUTION IH SCH ×2 (06:32→11:24)
[2018-01-16] MEDS: MEROPENEM 1 GM VIAL IVP SCH ×2 (06:44→17:56)
[2018-01-16] MEDS ORDERED: FUROSEMIDE 10 MG/ML 4ML VIAL IV SCH (06:45)
[2018-01-16] MEDS: POTASSIUM PHOS 15 mMOL+NS250ML 250 ML IV PRN (06:46)
[2018-01-16] MEDS: SPIRONOLACTONE 25 MG TAB PO SCH (08:20)
[2018-01-16] MEDS: DOXYCYCLINE HYCLATE 100 MG TABLET PO SCH ×2 (08:20→20:07)
[2018-01-16] MEDS: ASPIRIN 81MG TAB.CHEW PO SCH (08:20)
[2018-01-16] MEDS: CLOPIDOGREL BISULFATE 75 MG TAB PO SCH (08:20)
[2018-01-16] MEDS: PANTOPRAZOLE 40 MG/VIAL IVP SCH (08:21)
[2018-01-16] MEDS: ENOXAPARIN SODIUM 30 MG/0.3 ML SQ SCH (08:21)
[2018-01-16] MEDS: VANCOMYCIN 1GM+NS 250ML 250 ML IV SCH ×2 (09:00→20:25)
[2018-01-16] MEDS ORDERED: VANCOMYCIN 1.75 GM in SODIUM CHLORIDE 0.9% 250 ML IV SCH (09:46)
[2018-01-16] MEDS ORDERED: PHARMACY COMMUNICATION MISC SCH ×2 (10:15→17:15)
[2018-01-16] MEDS ORDERED: DOBUTAMINE 250MG/D5 250ML 250 ML IV SCH (11:00)
[2018-01-16] MEDS ORDERED: FUROSEMIDE 100 MG in SODIUM CHLORIDE 0.9% 90 ML IV SCH (11:00)
[2018-01-16 13:12] LABS: CREATININE 0.7 mg/dL (0.5-1.5); POTASSIUM 3.7 mmol/L (3.5-5.1)
[2018-01-16 14:11] LABS: ABG HCO3 29.9 mmol/L (21.0-28.0); ABG OXYGEN SATURATION 95.2 % (95.0-99.0); ABG PCO2 37 mmHg (32-45)
[2018-01-16 15:13] LABS: ABG BASE EXCESS 5.3 mmol/L (-2.0-3.0); ABG HCO3 26.7 mmol/L (21.0-28.0); ABG OXYGEN SATURATION 98.7 % (95.0-99.0); ABG PCO2 30 mmHg (32-45)
[2018-01-16] MEDS ORDERED: RACEPINEPHRINE HCL 2.25% 0.5 ML NEB SOLN ONE (15:15)
[2018-01-16] MEDS ORDERED: RACEPINEPHRINE HCL 2.25% 0.5 ML NEB SOLN NEB PRN (15:15)
[2018-01-16] MEDS: IPRATROPIUM 0.5 MG/2.5 ML INH IH SCH ×2 (18:05→23:48)
[2018-01-16 18:28] LABS: CREATININE 0.8 mg/dL (0.5-1.5); POTASSIUM 3.2 mmol/L (3.5-5.1)
[2018-01-16] MEDS: ATORVASTATIN CALCIUM 40 MG TABLET PO SCH (20:04)
[2018-01-16] MEDS: TRAMADOL HCL 50 MG TABLET PO PRN (20:08)
[2018-01-16] MEDS: INSULIN R PO SS1/2 SQ SCH (20:17)
[2018-01-16] MEDS: DOBUTAMINE 250MG/D5 250ML 250 ML IV SCH (21:57)
[2018-01-17] VITALS (30 sets, daily range): BP systolic 103–144; BP diastolic 51–78
[2018-01-17] MEDS: ARTIFICAL TEARS SOL 15 ML OU SCH (04:59)
[2018-01-17 05:11] LABS: ABG BASE EXCESS 5.6 mmol/L (-2.0-3.0); ABG HCO3 29.2 mmol/L (21.0-28.0); ABG OXYGEN SATURATION 96.2 % (95.0-99.0); ABG PCO2 39 mmHg (32-45)
[2018-01-17 05:19] LABS: HEMATOCRIT 25.2 % (36-48); MEAN CORPUSCULAR HEMOGLOBIN 30.4 pg (27.0-33.0); MEAN CORPUSCULAR HGB CONC 33.6 g/dL (32.0-36.0); MEAN CORPUSCULAR VOLUME 90.4 fL (79-99); NUCLEATED RED BLOOD CELLS 0.3 % (0.0-0.19); PLATELET COUNT (AUTO) 212 K/uL (130-400); RED BLOOD CELL COUNT(AUTO) 2.79 MIL/uL (4.00-5.50); RED CELL DISTRIBUTION WIDTH 15.1 % (11.0-15.5); WHITE BLOOD COUNT (AUTO) 20.2 K/uL (4.8-10.8)
[2018-01-17 05:48] LABS: ALBUMIN 2.5 g/dL (3.5-5.0); BILIRUBIN,TOTAL 1.3 mg/dL (0.2-1.0); CREATININE 0.7 mg/dL (0.5-1.5); MAGNESIUM 2.3 mg/dL (1.80-2.40); POTASSIUM 3.8 mmol/L (3.5-5.1)
[2018-01-17] MEDS: POTASSIUM CHLORIDE 20MEQ/100ML 100 ML IV PRN (05:59)
[2018-01-17] MEDS: INSULIN R PO SS1/2 SQ SCH ×4 (06:32→21:00)
[2018-01-17] MEDS: MEROPENEM 1 GM VIAL IVP SCH ×2 (06:33→19:46)
[2018-01-17] MEDS: IPRATROPIUM 0.5 MG/2.5 ML INH IH SCH ×4 (06:54→23:54)
[2018-01-17] MEDS: ENOXAPARIN SODIUM 30 MG/0.3 ML SQ SCH (07:45)
[2018-01-17] MEDS: CLOPIDOGREL BISULFATE 75 MG TAB PO SCH (07:45)
[2018-01-17] MEDS: VANCOMYCIN 1GM+NS 250ML 250 ML IV SCH ×2 (07:45→21:21)
[2018-01-17] MEDS: DOXYCYCLINE HYCLATE 100 MG TABLET PO SCH ×2 (07:45→21:21)
[2018-01-17] MEDS: ASPIRIN 81MG TAB.CHEW PO SCH (07:45)
[2018-01-17] MEDS: SPIRONOLACTONE 25 MG TAB PO SCH (07:45)
[2018-01-17] MEDS: POTASSIUM PHOS 15 mMOL+NS250ML 250 ML IV PRN (07:46)
[2018-01-17] MEDS: PANTOPRAZOLE 40 MG/VIAL IVP SCH (08:07)
[2018-01-17] MEDS: PANTOPRAZOLE SODIUM 40 MG TABLET.DR PO SCH (08:48)
[2018-01-17] MEDS: FUROSEMIDE 10 MG/ML 4ML VIAL IV SCH ×4 (08:56→13:27)
[2018-01-17] MEDS ORDERED: POTASSIUM PHOS 15 mMOL+NS250ML 250 ML IV SCH (14:00)
[2018-01-17] MEDS: TRAMADOL HCL 50 MG TABLET PO PRN (19:53)
[2018-01-17] MEDS: ATORVASTATIN CALCIUM 40 MG TABLET PO SCH (21:21)
[2018-01-17] MEDS: METOPROLOL TARTRATE 25 MG TAB PO SCH (21:21)
[2018-01-18] VITALS (14 sets, daily range): BP systolic 95–122; BP diastolic 49–83
[2018-01-18] MEDS: TRAMADOL HCL 50 MG TABLET PO PRN (00:23)
[2018-01-18 03:34] LABS: HEMATOCRIT 28.8 % (36-48); MEAN CORPUSCULAR HEMOGLOBIN 30.2 pg (27.0-33.0); MEAN CORPUSCULAR HGB CONC 33.4 g/dL (32.0-36.0); MEAN CORPUSCULAR VOLUME 90.6 fL (79-99); NUCLEATED RED BLOOD CELLS 0.4 % (0.0-0.19); PLATELET COUNT (AUTO) 303 K/uL (130-400); RED BLOOD CELL COUNT(AUTO) 3.17 MIL/uL (4.00-5.50); RED CELL DISTRIBUTION WIDTH 15.5 % (11.0-15.5); WHITE BLOOD COUNT (AUTO) 19.8 K/uL (4.8-10.8)
[2018-01-18 03:51] LABS: ALBUMIN 2.7 g/dL (3.5-5.0); BILIRUBIN,TOTAL 1.5 mg/dL (0.2-1.0); CREATININE 0.8 mg/dL (0.5-1.5); MAGNESIUM 2.3 mg/dL (1.80-2.40); PHOSPHORUS 2.8 mg/dL (2.5-4.9); POTASSIUM 3.8 mmol/L (3.5-5.1); TOTAL PROTEIN, SERUM 6.3 g/dL (6.0-8.3)
[2018-01-18] MEDS: PANTOPRAZOLE SODIUM 40 MG TABLET.DR PO SCH (06:32)
[2018-01-18] MEDS: MEROPENEM 1 GM VIAL IVP SCH ×2 (06:32→19:44)
[2018-01-18] MEDS: IPRATROPIUM 0.5 MG/2.5 ML INH IH SCH ×4 (06:34→23:18)
[2018-01-18] MEDS: INSULIN R PO SS1/2 SQ SCH ×4 (06:36→21:00)
[2018-01-18] MEDS: ASPIRIN 81MG TAB.CHEW PO SCH (08:35)
[2018-01-18] MEDS: SPIRONOLACTONE 25 MG TAB PO SCH (08:35)
[2018-01-18] MEDS: DOXYCYCLINE HYCLATE 100 MG TABLET PO SCH (08:35)
[2018-01-18] MEDS: CLOPIDOGREL BISULFATE 75 MG TAB PO SCH (08:35)
[2018-01-18] MEDS: METOPROLOL TARTRATE 25 MG TAB PO SCH ×2 (08:35→21:26)
[2018-01-18] MEDS: FUROSEMIDE 10 MG/ML 4ML VIAL IV SCH ×2 (08:36→21:26)
[2018-01-18] MEDS: ENOXAPARIN SODIUM 30 MG/0.3 ML SQ SCH (08:39)
[2018-01-18] MEDS: VANCOMYCIN 1GM+NS 250ML 250 ML IV SCH ×2 (09:00→21:27)
[2018-01-18] MEDS ORDERED: METOPROLOL TARTRATE 25 MG TAB PO SCH ×2 (09:30→21:00)
[2018-01-18] MEDS ORDERED: VANCOMYCIN 1GM+NS 250ML 250 ML IV SCH (10:30)
[2018-01-18] MEDS: ATORVASTATIN CALCIUM 40 MG TABLET PO SCH (21:26)
[2018-01-19 03:35] LABS: HEMATOCRIT 32.3 % (36-48); MEAN CORPUSCULAR HEMOGLOBIN 30.4 pg (27.0-33.0); MEAN CORPUSCULAR HGB CONC 33.4 g/dL (32.0-36.0); NUCLEATED RED BLOOD CELLS 1.6 % (0.0-0.19); PLATELET COUNT (AUTO) 443 K/uL (130-400); RED BLOOD CELL COUNT(AUTO) 3.54 MIL/uL (4.00-5.50); RED CELL DISTRIBUTION WIDTH 15.6 % (11.0-15.5); WHITE BLOOD COUNT (AUTO) 17.3 K/uL (4.8-10.8)
[2018-01-19 03:46] LABS: ALBUMIN 2.9 g/dL (3.5-5.0); CREATININE 0.7 mg/dL (0.5-1.5); MAGNESIUM 2.2 mg/dL (1.80-2.40); POTASSIUM 3.8 mmol/L (3.5-5.1); TOTAL PROTEIN, SERUM 6.8 g/dL (6.0-8.3)
[2018-01-19 03:48] LABS: B-TYPE NATRIURETIC PEPTIDE 641 pg/mL (0-100)
[2018-01-19 04:00] VITALS: BP 95/49
[2018-01-19] MEDS: IPRATROPIUM 0.5 MG/2.5 ML INH IH SCH ×4 (05:54→23:24)
[2018-01-19] MEDS: SODIUM CHLORIDE 3% FOR INHALATION 4 ML/AMP VIAL.NEB IH SCH ×3 (06:41→22:30)
[2018-01-19] MEDS: MEROPENEM 1 GM VIAL IVP SCH (06:50)
[2018-01-19] MEDS: INSULIN R PO SS1/2 SQ SCH ×4 (06:53→21:00)
[2018-01-19 07:00] VITALS: BP 119/50
[2018-01-19] MEDS: SPIRONOLACTONE 25 MG TAB PO SCH (07:40)
[2018-01-19] MEDS: PANTOPRAZOLE SODIUM 40 MG TABLET.DR PO SCH (07:40)
[2018-01-19] MEDS: FUROSEMIDE 10 MG/ML 4ML VIAL IV SCH ×2 (07:40→20:43)
[2018-01-19] MEDS: ASPIRIN 81MG TAB.CHEW PO SCH (07:40)
[2018-01-19] MEDS: CLOPIDOGREL BISULFATE 75 MG TAB PO SCH (07:40)
[2018-01-19] MEDS: VANCOMYCIN 1GM+NS 250ML 250 ML IV SCH (07:41)
[2018-01-19] MEDS: ENOXAPARIN SODIUM 30 MG/0.3 ML SQ SCH (07:41)
[2018-01-19] MEDS: POTASSIUM CHLORIDE 20 MEQ ERTAB PO SCH ×2 (08:00→09:34)
[2018-01-19] MEDS: METOLAZONE 2.5 MG TABLET PO SCH ×2 (08:00→09:33)
[2018-01-19] MEDS: METOPROLOL TARTRATE 25 MG TAB PO SCH ×3 (08:51→21:00)
[2018-01-19] MEDS ORDERED: METOPROLOL TARTRATE 25 MG TAB PO SCH (09:00)
[2018-01-19 11:00] VITALS: BP 98/64
[2018-01-19 16:00] VITALS: BP 97/62
[2018-01-19 20:04] VITALS: BP 132/77
[2018-01-19] MEDS: CEPHALEXIN 500 MG CAPSULE PO SCH (20:44)
[2018-01-19] MEDS: ATORVASTATIN CALCIUM 20 MG TABLET PO SCH (20:44)
[2018-01-19 23:33] VITALS: BP 95/65
[2018-01-20 03:35] LABS: HEMATOCRIT 35.6 % (36-48); MEAN CORPUSCULAR HEMOGLOBIN 30.4 pg (27.0-33.0); MEAN CORPUSCULAR HGB CONC 33.5 g/dL (32.0-36.0); MEAN CORPUSCULAR VOLUME 90.8 fL (79-99); NUCLEATED RED BLOOD CELLS 0.4 % (0.0-0.19); PLATELET COUNT (AUTO) 504 K/uL (130-400); RED BLOOD CELL COUNT(AUTO) 3.92 MIL/uL (4.00-5.50); RED CELL DISTRIBUTION WIDTH 15.8 % (11.0-15.5); WHITE BLOOD COUNT (AUTO) 23.8 K/uL (4.8-10.8)
[2018-01-20 03:46] LABS: ALBUMIN 3.2 g/dL (3.5-5.0); BILIRUBIN,TOTAL 2.3 mg/dL (0.2-1.0); CREATININE 0.9 mg/dL (0.5-1.5); POTASSIUM 3.7 mmol/L (3.5-5.1); TOTAL PROTEIN, SERUM 7.5 g/dL (6.0-8.3)
[2018-01-20 03:53] VITALS: BP 85/58
[2018-01-20 04:49] LABS: ERYTHROCYTE SEDIMENTATION RATE 57 MM/HR (0-30)
[2018-01-20] MEDS: IPRATROPIUM 0.5 MG/2.5 ML INH IH SCH ×3 (06:12→19:13)
[2018-01-20] MEDS: SODIUM CHLORIDE 3% FOR INHALATION 4 ML/AMP VIAL.NEB IH SCH ×3 (06:13→22:01)
[2018-01-20] MEDS: POTASSIUM CHLORIDE 20 MEQ ERTAB PO SCH ×2 (06:49)
[2018-01-20] MEDS: METOLAZONE 2.5 MG TABLET PO SCH ×2 (06:50)
[2018-01-20 07:00] VITALS: BP 104/77
[2018-01-20] MEDS: INSULIN R PO SS1/2 SQ SCH ×4 (07:30→21:00)
[2018-01-20] MEDS: SPIRONOLACTONE 25 MG TAB PO SCH (08:57)
[2018-01-20] MEDS: CEPHALEXIN 500 MG CAPSULE PO SCH ×2 (08:57→13:46)
[2018-01-20] MEDS: METOPROLOL TARTRATE 25 MG TAB PO SCH ×3 (08:57→21:23)
[2018-01-20] MEDS: ASPIRIN 81MG TAB.CHEW PO SCH (08:57)
[2018-01-20] MEDS: CLOPIDOGREL BISULFATE 75 MG TAB PO SCH (08:57)
[2018-01-20] MEDS: PANTOPRAZOLE SODIUM 40 MG TABLET.DR PO SCH (08:57)
[2018-01-20] MEDS: FUROSEMIDE 10 MG/ML 4ML VIAL IV SCH ×2 (08:58→21:30)
[2018-01-20] MEDS: ENOXAPARIN SODIUM 30 MG/0.3 ML SQ SCH (09:02)
[2018-01-20 11:00] VITALS: BP 90/57
[2018-01-20 16:00] VITALS: BP 108/65
[2018-01-20] MEDS: LEVOFLOXACIN 500 MG TABLET PO SCH (18:21)
[2018-01-20 20:00] VITALS: BP 118/67
[2018-01-20] MEDS: ATORVASTATIN CALCIUM 20 MG TABLET PO SCH (21:23)
[2018-01-20] MEDS: CEFUROXIME AXETIL 250 MG TABLET PO SCH (21:23)
[2018-01-20 23:00] VITALS: BP 99/51
[2018-01-21] VITALS (7 sets, daily range): BP systolic 77–102; BP diastolic 44–64
[2018-01-21] MEDS: IPRATROPIUM 0.5 MG/2.5 ML INH IH SCH ×4 (00:49→18:18)
[2018-01-21 04:02] LABS: HEMATOCRIT 33.8 % (36-48); MEAN CORPUSCULAR HEMOGLOBIN 30.2 pg (27.0-33.0); MEAN CORPUSCULAR HGB CONC 33.4 g/dL (32.0-36.0); MEAN CORPUSCULAR VOLUME 90.5 fL (79-99); NUCLEATED RED BLOOD CELLS 0.2 % (0.0-0.19); PLATELET COUNT (AUTO) 624 K/uL (130-400); RED BLOOD CELL COUNT(AUTO) 3.74 MIL/uL (4.00-5.50); RED CELL DISTRIBUTION WIDTH 15.5 % (11.0-15.5); WHITE BLOOD COUNT (AUTO) 24.4 K/uL (4.8-10.8)
[2018-01-21 04:20] LABS: ALBUMIN 3.1 g/dL (3.5-5.0); BILIRUBIN,TOTAL 2.3 mg/dL (0.2-1.0); CREATININE 0.8 mg/dL (0.5-1.5); CRP QUANTITATIVE 167.4 mg/L (0.00-9.0); POTASSIUM 3.8 mmol/L (3.5-5.1); TOTAL PROTEIN, SERUM 7.6 g/dL (6.0-8.3)
[2018-01-21] MEDS: SODIUM CHLORIDE 3% FOR INHALATION 4 ML/AMP VIAL.NEB IH SCH ×3 (06:19→22:08)
[2018-01-21] MEDS: PANTOPRAZOLE SODIUM 40 MG TABLET.DR PO SCH (06:23)
[2018-01-21] MEDS: INSULIN R PO SS1/2 SQ SCH ×4 (06:23→21:00)
[2018-01-21] MEDS: POTASSIUM CHLORIDE 20 MEQ ERTAB PO SCH ×2 (08:00)
[2018-01-21] MEDS: METOLAZONE 2.5 MG TABLET PO SCH ×2 (08:00)
[2018-01-21] MEDS: METOPROLOL TARTRATE 25 MG TAB PO SCH ×2 (08:50→21:00)
[2018-01-21] MEDS: FUROSEMIDE 10 MG/ML 4ML VIAL IV SCH ×2 (08:54→21:00)
[2018-01-21] MEDS: SPIRONOLACTONE 25 MG TAB PO SCH (08:54)
[2018-01-21] MEDS ORDERED: VANCOMYCIN PROTOCOL PER PHARMACY IV SCH (09:15)
[2018-01-21] MEDS: CLOPIDOGREL BISULFATE 75 MG TAB PO SCH (09:27)
[2018-01-21] MEDS: ASPIRIN 81MG TAB.CHEW PO SCH (09:27)
[2018-01-21] MEDS: ENOXAPARIN SODIUM 30 MG/0.3 ML SQ SCH (09:28)
[2018-01-21] MEDS: CEFUROXIME AXETIL 250 MG TABLET PO SCH (09:28)
[2018-01-21] MEDS ORDERED: COMPOUND IV REFRIGERATED 1 EACH IVSOLN MISC PRN (09:30)
[2018-01-21] MEDS ORDERED: VANCOMYCIN 1.5 GM in SODIUM CHLORIDE 0.9% 250 ML IV SCH (10:00)
[2018-01-21] MEDS ORDERED: DIATR MEGLU/DIATRIZOATE SODIUM 30 ML BOTTLE ONE ×2 (11:10→11:25)
[2018-01-21 12:28] LABS: APPEARANCE,URINE Clear (CLEAR); BILIRUBIN,URINE Negative (NEGATIVE); COLOR,URINE Dark Yellow (YELLOW); GLUCOSE, URINE (UA) Negative (NEGATIVE); KETONES,URINE Negative (NEGATIVE); LEUKOCYTE ESTERASE ,URINE Negative (NEGATIVE); NITRATE,URINE Negative (NEGATIVE); OCCULT BLOOD,URINE Trace (NEGATIVE); PROTEIN,URINE POS 1+ (NEGATIVE)
[2018-01-21 13:27] LABS: AMORPHOUS SEDIMENT,UR Moderate /LPF (None Seen); BACTERIA,URINE Few /HPF (None Seen); MUCUS,URINE Few LPF (None Seen); RBC,URINE 0-1 /HPF (0-1); SQUAMOUS EPITHELIAL CELL,UR Rare /HPF (0-2); WBC,URINE None Seen /HPF (0-1)
[2018-01-21] MEDS: CEFTAZIDIME PENTAHYDRATE 1 GM/VIAL IVP SCH ×2 (14:45→22:09)
[2018-01-21] MEDS ORDERED: IOHEXOL-350 75 ML VIAL IV ONE (15:03)
[2018-01-21] MEDS ORDERED: IOHEXOL 350 MG/ML 100ML INFUS..BTL IV ONE (15:18)
[2018-01-21] MEDS: LEVOFLOXACIN 500 MG TABLET PO SCH (17:48)
[2018-01-21 19:01] LABS: BASOPHILS % (AUTO) 0.5 % (0.0-5.0); EOSINOPHILS % (AUTO) 1.3 % (0.0-8.0); HEMATOCRIT 33.5 % (36-48); LYMPHOCYTES % (AUTO) 8.5 % (21.0-51.0); MEAN CORPUSCULAR HEMOGLOBIN 30.8 pg (27.0-33.0); MEAN CORPUSCULAR HGB CONC 34.1 g/dL (32.0-36.0); MEAN CORPUSCULAR VOLUME 90.3 fL (79-99); MONOCYTES % (AUTO) 7.6 % (3.0-13.0); NEUTROPHILS % (AUTO) 82.1 % (40.0-77.0); NUCLEATED RED BLOOD CELLS 0.1 % (0.0-0.19); PLATELET COUNT (AUTO) 644 K/uL (130-400); RED BLOOD CELL COUNT(AUTO) 3.71 MIL/uL (4.00-5.50); RED CELL DISTRIBUTION WIDTH 15.8 % (11.0-15.5); WHITE BLOOD COUNT (AUTO) 23.7 K/uL (4.8-10.8)
[2018-01-21 19:30] LABS: INR 1.07 (0.85-1.15); PROTHROMBIN TIME 11.2 SEC (9.6-11.6)
[2018-01-21] MEDS ORDERED: HEPARIN 25000 UNITS/250 ML D5W 250 ML IV SCH (20:15)
[2018-01-21] MEDS ORDERED: HEPARIN SODIUM 5000UNIT/ML 1ML VIAL ONE (21:38)
[2018-01-21] MEDS: ATORVASTATIN CALCIUM 20 MG TABLET PO SCH (21:46)
[2018-01-21] MEDS ORDERED: HEPARIN SODIUM 5000UNIT/ML 1ML VIAL IV SCH (22:00)
[2018-01-22] MEDS: IPRATROPIUM 0.5 MG/2.5 ML INH IH SCH ×5 (01:08→23:22)
[2018-01-22 04:00] VITALS: BP 85/49
[2018-01-22 04:10] LABS: BASOPHILS % (AUTO) 0.4 % (0.0-5.0); EOSINOPHILS % (AUTO) 1.4 % (0.0-8.0); HEMATOCRIT 33.7 % (36-48); LYMPHOCYTES % (AUTO) 9.2 % (21.0-51.0); MEAN CORPUSCULAR HEMOGLOBIN 29.6 pg (27.0-33.0); MEAN CORPUSCULAR VOLUME 89.9 fL (79-99); NUCLEATED RED BLOOD CELLS 0.1 % (0.0-0.19); PLATELET COUNT (AUTO) 572 K/uL (130-400); RED BLOOD CELL COUNT(AUTO) 3.75 MIL/uL (4.00-5.50); RED CELL DISTRIBUTION WIDTH 16.2 % (11.0-15.5)
[2018-01-22 04:22] LABS: BILIRUBIN,TOTAL 2.5 mg/dL (0.2-1.0); CREATININE 0.9 mg/dL (0.5-1.5); POTASSIUM 3.5 mmol/L (3.5-5.1); TOTAL PROTEIN, SERUM 7.4 g/dL (6.0-8.3)
[2018-01-22] MEDS: CEFTAZIDIME PENTAHYDRATE 1 GM/VIAL IVP SCH ×3 (04:40→20:44)
[2018-01-22] MEDS: SODIUM CHLORIDE 3% FOR INHALATION 4 ML/AMP VIAL.NEB IH SCH ×3 (06:26→22:25)
[2018-01-22] MEDS: PANTOPRAZOLE SODIUM 40 MG TABLET.DR PO SCH (06:45)
[2018-01-22] MEDS: INSULIN R PO SS1/2 SQ SCH ×4 (06:46→21:00)
[2018-01-22 07:00] VITALS: BP 98/59
[2018-01-22] MEDS: POTASSIUM CHLORIDE 20 MEQ ERTAB PO SCH (08:00)
[2018-01-22] MEDS: ENOXAPARIN SODIUM 30 MG/0.3 ML SQ SCH (08:37)
[2018-01-22] MEDS: CLOPIDOGREL BISULFATE 75 MG TAB PO SCH (09:37)
[2018-01-22] MEDS: PREDNISONE 10 MG TABLET PO SCH (09:37)
[2018-01-22] MEDS: ASPIRIN 81MG TAB.CHEW PO SCH (09:37)
[2018-01-22] MEDS: FUROSEMIDE 10 MG/ML 4ML VIAL IV SCH ×2 (09:37→20:43)
[2018-01-22] MEDS: SPIRONOLACTONE 25 MG TAB PO SCH (09:37)
[2018-01-22] MEDS: METOPROLOL TARTRATE 25 MG TAB PO SCH ×2 (09:37→21:00)
[2018-01-22] MEDS ORDERED: POTASSIUM CHLORIDE 10% ELIXIR 20 MEQ/15 ML UDCUP PO PRN (10:00)
[2018-01-22 11:00] VITALS: BP 98/50
[2018-01-22] MEDS: LEVOFLOXACIN 500 MG TABLET PO SCH (15:32)
[2018-01-22 16:00] VITALS: BP 93/53
[2018-01-22 19:00] VITALS: BP 107/55
[2018-01-22] MEDS: ATORVASTATIN CALCIUM 20 MG TABLET PO SCH (20:44)
[2018-01-22] MEDS: APIXABAN 5 MG TABLET PO SCH (20:44)
[2018-01-22 23:00] VITALS: BP 100/63
[2018-01-23 03:00] VITALS: BP 84/51
[2018-01-23 04:32] LABS: BILIRUBIN,TOTAL 2.1 mg/dL (0.2-1.0); CREATININE 0.9 mg/dL (0.5-1.5); TOTAL PROTEIN, SERUM 7.4 g/dL (6.0-8.3)
[2018-01-23] MEDS: CEFTAZIDIME PENTAHYDRATE 1 GM/VIAL IVP SCH ×3 (04:58→21:15)
[2018-01-23] MEDS: PANTOPRAZOLE SODIUM 40 MG TABLET.DR PO SCH (06:11)
[2018-01-23] MEDS: INSULIN R PO SS1/2 SQ SCH ×4 (06:12→21:00)
[2018-01-23] MEDS: IPRATROPIUM 0.5 MG/2.5 ML INH IH SCH ×3 (06:36→19:06)
[2018-01-23] MEDS: SODIUM CHLORIDE 3% FOR INHALATION 4 ML/AMP VIAL.NEB IH SCH ×2 (06:49→19:36)
[2018-01-23 07:00] VITALS: BP 90/54
[2018-01-23] MEDS: APIXABAN 5 MG TABLET PO SCH ×2 (09:28→21:16)
[2018-01-23] MEDS: CLOPIDOGREL BISULFATE 75 MG TAB PO SCH (09:29)
[2018-01-23] MEDS: PREDNISONE 10 MG TABLET PO SCH (09:29)
[2018-01-23] MEDS: ASPIRIN 81MG TAB.CHEW PO SCH (09:29)
[2018-01-23] MEDS: SPIRONOLACTONE 25 MG TAB PO SCH (09:29)
[2018-01-23] MEDS: POTASSIUM CHLORIDE 20 MEQ ERTAB PO PRN ×4 (09:30→18:45)
[2018-01-23] MEDS: FUROSEMIDE 10 MG/ML 4ML VIAL IV SCH ×2 (09:31→21:18)
[2018-01-23 11:00] VITALS: BP 83/54
[2018-01-23] MEDS: LEVOFLOXACIN 500 MG TABLET PO SCH (15:20)
[2018-01-23 16:00] VITALS: BP 123/48
[2018-01-23 20:00] VITALS: BP 110/65
[2018-01-23] MEDS: ATORVASTATIN CALCIUM 20 MG TABLET PO SCH (21:16)
[2018-01-23] MEDS: METOPROLOL TARTRATE 25 MG TAB PO SCH (21:18)
[2018-01-23 23:00] VITALS: BP 84/53
[2018-01-24] MEDS: IPRATROPIUM 0.5 MG/2.5 ML INH IH SCH ×5 (00:39→23:36)
[2018-01-24] MEDS: SODIUM CHLORIDE 3% FOR INHALATION 4 ML/AMP VIAL.NEB IH SCH ×4 (01:48→23:36)
[2018-01-24 03:00] VITALS: BP 84/51
[2018-01-24 04:23] LABS: CREATININE 0.8 mg/dL (0.5-1.5)
[2018-01-24] MEDS: CEFTAZIDIME PENTAHYDRATE 1 GM/VIAL IVP SCH ×3 (05:29→22:07)
[2018-01-24] MEDS: INSULIN R PO SS1/2 SQ SCH ×4 (05:45→22:32)
[2018-01-24] MEDS: PANTOPRAZOLE SODIUM 40 MG TABLET.DR PO SCH (06:50)
[2018-01-24 07:47] VITALS: BP 90/54
[2018-01-24] MEDS: PREDNISONE 10 MG TABLET PO SCH (10:41)
[2018-01-24] MEDS: FUROSEMIDE 40 MG TABLET PO SCH ×2 (10:42→16:20)
[2018-01-24] MEDS: SPIRONOLACTONE 25 MG TAB PO SCH (10:42)
[2018-01-24] MEDS: ASPIRIN 81MG TAB.CHEW PO SCH (10:42)
[2018-01-24] MEDS: METOPROLOL TARTRATE 25 MG TAB PO SCH ×2 (10:42→22:06)
[2018-01-24] MEDS: ENALAPRIL MALEATE 5 MG TAB PO SCH (10:43)
[2018-01-24] MEDS: CLOPIDOGREL BISULFATE 75 MG TAB PO SCH (10:43)
[2018-01-24] MEDS: APIXABAN 5 MG TABLET PO SCH ×2 (10:43→22:06)
[2018-01-24 11:00] VITALS: BP 94/60
[2018-01-24] MEDS: LEVOFLOXACIN 500 MG TABLET PO SCH (16:19)
[2018-01-24 16:20] VITALS: BP 98/62
[2018-01-24 19:59] VITALS: BP 93/61
[2018-01-24] MEDS: ATORVASTATIN CALCIUM 20 MG TABLET PO SCH (22:06)
[2018-01-24 23:46] VITALS: BP 92/54
[2018-01-25 03:58] LABS: ALBUMIN 2.8 g/dL (3.5-5.0); BILIRUBIN,TOTAL 1.5 mg/dL (0.2-1.0); CREATININE 0.9 mg/dL (0.5-1.5); POTASSIUM 3.5 mmol/L (3.5-5.1); TOTAL PROTEIN, SERUM 6.9 g/dL (6.0-8.3)
[2018-01-25 04:12] LABS: BASOPHILS % (AUTO) 0.5 % (0.0-5.0); EOSINOPHILS % (AUTO) 0.9 % (0.0-8.0); HEMATOCRIT 27.9 % (36-48); LYMPHOCYTES % (AUTO) 11.3 % (21.0-51.0); MEAN CORPUSCULAR HEMOGLOBIN 30.4 pg (27.0-33.0); MEAN CORPUSCULAR HGB CONC 33.3 g/dL (32.0-36.0); MEAN CORPUSCULAR VOLUME 91.1 fL (79-99); MONOCYTES % (AUTO) 10.6 % (3.0-13.0); NEUTROPHILS % (AUTO) 76.7 % (40.0-77.0); NUCLEATED RED BLOOD CELLS 0.1 % (0.0-0.19); PLATELET COUNT (AUTO) 574 K/uL (130-400); RED BLOOD CELL COUNT(AUTO) 3.07 MIL/uL (4.00-5.50); RED CELL DISTRIBUTION WIDTH 16.2 % (11.0-15.5)
[2018-01-25 04:34] VITALS: BP 105/58
[2018-01-25] MEDS: CEFTAZIDIME PENTAHYDRATE 1 GM/VIAL IVP SCH ×3 (05:51→21:53)
[2018-01-25] MEDS: INSULIN R PO SS1/2 SQ SCH ×4 (06:35→21:53)
[2018-01-25] MEDS: PANTOPRAZOLE SODIUM 40 MG TABLET.DR PO SCH (06:48)
[2018-01-25] MEDS: SODIUM CHLORIDE 3% FOR INHALATION 4 ML/AMP VIAL.NEB IH SCH ×3 (06:52→21:25)
[2018-01-25] MEDS: IPRATROPIUM 0.5 MG/2.5 ML INH IH SCH ×4 (06:52→23:53)
[2018-01-25 08:01] VITALS: BP 90/57
[2018-01-25 09:00] LABS: ABG BASE EXCESS 1.5 mmol/L (-2.0-3.0); ABG HCO3 24.3 mmol/L (21.0-28.0); ABG OXYGEN SATURATION 90.4 % (95.0-99.0); ABG PCO2 33 mmHg (32-45)
[2018-01-25] MEDS: APIXABAN 5 MG TABLET PO SCH ×2 (09:49→21:50)
[2018-01-25] MEDS: PREDNISONE 10 MG TABLET PO SCH (09:49)
[2018-01-25] MEDS: SPIRONOLACTONE 25 MG TAB PO SCH (09:50)
[2018-01-25] MEDS: METOPROLOL TARTRATE 25 MG TAB PO SCH ×2 (09:50→21:50)
[2018-01-25] MEDS: ASPIRIN 81MG TAB.CHEW PO SCH (09:50)
[2018-01-25] MEDS: FUROSEMIDE 40 MG TABLET PO SCH ×2 (09:51→18:06)
[2018-01-25] MEDS: CLOPIDOGREL BISULFATE 75 MG TAB PO SCH (09:51)
[2018-01-25] MEDS: ENALAPRIL MALEATE 5 MG TAB PO SCH (09:52)
[2018-01-25 12:02] VITALS: BP 93/63
[2018-01-25 16:00] VITALS: BP 100/73
[2018-01-25] MEDS: LEVOFLOXACIN 500 MG TABLET PO SCH (18:05)
[2018-01-25] MEDS: POTASSIUM CHLORIDE 20 MEQ ERTAB PO PRN (18:15)
[2018-01-25 19:52] VITALS: BP 137/54
[2018-01-25] MEDS: ATORVASTATIN CALCIUM 20 MG TABLET PO SCH (21:50)
[2018-01-26] VITALS: BP 121/63
[2018-01-26 04:00] VITALS: BP 96/53
[2018-01-26 04:16] LABS: CREATININE 0.8 mg/dL (0.5-1.5); MAGNESIUM 2.2 mg/dL (1.80-2.40); PHOSPHORUS 2.9 mg/dL (2.5-4.9); POTASSIUM 3.6 mmol/L (3.5-5.1)
[2018-01-26] MEDS: CEFTAZIDIME PENTAHYDRATE 1 GM/VIAL IVP SCH ×2 (06:09→13:15)
[2018-01-26] MEDS: PANTOPRAZOLE SODIUM 40 MG TABLET.DR PO SCH (06:45)
[2018-01-26] MEDS: POTASSIUM CHLORIDE 20 MEQ ERTAB PO PRN (06:46)
[2018-01-26] MEDS: SODIUM CHLORIDE 3% FOR INHALATION 4 ML/AMP VIAL.NEB IH SCH ×2 (07:03→14:00)
[2018-01-26] MEDS: IPRATROPIUM 0.5 MG/2.5 ML INH IH SCH ×3 (07:03→18:00)
[2018-01-26] MEDS: INSULIN R PO SS1/2 SQ SCH ×3 (07:30→17:05)
[2018-01-26 08:16] VITALS: BP 98/56
[2018-01-26] MEDS: ENALAPRIL MALEATE 5 MG TAB PO SCH (09:00)
[2018-01-26] MEDS: ASPIRIN 81MG TAB.CHEW PO SCH (09:53)
[2018-01-26] MEDS: PREDNISONE 10 MG TABLET PO SCH (09:53)
[2018-01-26] MEDS: CLOPIDOGREL BISULFATE 75 MG TAB PO SCH (09:56)
[2018-01-26] MEDS: APIXABAN 5 MG TABLET PO SCH (09:56)
[2018-01-26] MEDS: SPIRONOLACTONE 25 MG TAB PO SCH (09:56)
[2018-01-26] MEDS: FUROSEMIDE 40 MG TABLET PO SCH ×2 (09:56→17:00)
[2018-01-26] MEDS: METOPROLOL TARTRATE 25 MG TAB PO SCH (10:04)
[2018-01-26 12:01] VITALS: BP_SYST 84; BP_SYST 89; BP_DIAS 54; BP_DIAS 56
[2018-01-26] MEDS ORDERED: POTASSIUM CHLORIDE 20 MEQ ERTAB PO ONE ×2 (13:04→14:45)
[2018-01-26] MEDS ORDERED: ATOR20TA65 PO (13:18)
[2018-01-26] MEDS ORDERED: FURO40TA7 PO (13:18)
[2018-01-26] MEDS ORDERED: CLOP75TA14 PO (13:18)
[2018-01-26] MEDS ORDERED: ENAL5TAB PO (13:18)
[2018-01-26] MEDS ORDERED: SPIR25TA PO (13:18)
[2018-01-26] MEDS ORDERED: ASPI-1005 PO (13:18)
[2018-01-26] MEDS ORDERED: APIX5TAB PO (13:18)
[2018-01-26] MEDS ORDERED: METO25 PO (13:18)
[2018-01-26 16:00] VITALS: BP 98/56
[2018-01-26] MEDS: LEVOFLOXACIN 500 MG TABLET PO SCH (16:00)
[2018-01-29] MEDS ORDERED: APIXABAN 5 MG TABLET PO SCH (21:00)
== END 2018-01-26 18:21 | disposition home or self-care (01) | DRG 215 ==
LOC: EDHIP 03:17 → 2CH 05:05 → 2CV 06:40 → 2CH 01-15 10:23 → 2DH 01-18 06:32
PROVIDERS: ADMIT Hospitalist; ATTEND Hospitalist
PROC: 4A023N7 Measurement of Cardiac Sampling and Pressure, Left Heart, Percutaneous Approach (ICD-10-PCS; 2018-01-11)
PROC: 02100Z9 Bypass Coronary Artery, One Artery from Left Internal Mammary, Open Approach (ICD-10-PCS; 2018-01-11)
PROC: 021109W Bypass Coronary Artery, Two Arteries from Aorta with Autologous Venous Tissue, Open Approach (ICD-10-PCS; 2018-01-11)
PROC: 06BQ4ZZ Excision of Left Saphenous Vein, Percutaneous Endoscopic Approach (ICD-10-PCS; 2018-01-11)
PROC: 06BP4ZZ Excision of Right Saphenous Vein, Percutaneous Endoscopic Approach (ICD-10-PCS; 2018-01-11)
PROC: 5A1221Z Performance of Cardiac Output, Continuous (ICD-10-PCS; 2018-01-11)
PROC: 0BH17EZ Insertion of Endotracheal Airway into Trachea, Via Natural or Artificial Opening (ICD-10-PCS; 2018-01-11)
PROC: 5A1955Z Respiratory Ventilation, Greater than 96 Consecutive Hours (ICD-10-PCS; 2018-01-11)
PROC: 30233L1 Transfusion of Nonautologous Fresh Plasma into Peripheral Vein, Percutaneous Approach (ICD-10-PCS; 2018-01-11)
PROC: 30233N1 Transfusion of Nonautologous Red Blood Cells into Peripheral Vein, Percutaneous Approach (ICD-10-PCS; 2018-01-11)
PROC: 30233R1 Transfusion of Nonautologous Platelets into Peripheral Vein, Percutaneous Approach (ICD-10-PCS; 2018-01-11)
PROC: 30233K1 Transfusion of Nonautologous Frozen Plasma into Peripheral Vein, Percutaneous Approach (ICD-10-PCS; 2018-01-11)
PROC: B2151ZZ Fluoroscopy of Left Heart using Low Osmolar Contrast (ICD-10-PCS; principal; 2018-01-11 06:00)
PROC: B2111ZZ Fluoroscopy of Multiple Coronary Arteries using Low Osmolar Contrast (ICD-10-PCS; 2018-01-11 06:00)
PROC: 04QK0ZZ Repair Right Femoral Artery, Open Approach (ICD-10-PCS; 2018-01-14)
PROC: 02PA0RZ Removal of Short-term External Heart Assist System from Heart, Open Approach (ICD-10-PCS; 2018-01-14)
PROC: 02HA3RZ Insertion of Short-term External Heart Assist System into Heart, Percutaneous Approach (ICD-10-PCS; 2018-01-14 11:00)
PROC: 5A0221D Assistance with Cardiac Output using Impeller Pump, Continuous (ICD-10-PCS; 2018-01-14 11:00)
DX: I21.09 ST elevation (STEMI) myocardial infarction involving other coronary artery of anterior wall (principal); I50.41 Acute combined systolic (congestive) and diastolic (congestive) heart failure; E43 Unspecified severe protein-calorie malnutrition; I26.99 Other pulmonary embolism without acute cor pulmonale; J18.9 Pneumonia, unspecified organism; J96.01 Acute respiratory failure with hypoxia; R57.0 Cardiogenic shock; D62 Acute posthemorrhagic anemia; D68.9 Coagulation defect, unspecified; J98.11 Atelectasis; K80.10 Calculus of gallbladder with chronic cholecystitis without obstruction; Z99.11 Dependence on respirator [ventilator] status; E11.9 Type 2 diabetes mellitus without complications; E66.01 Morbid (severe) obesity due to excess calories; E78.2 Mixed hyperlipidemia; E87.6 Hypokalemia; F41.9 Anxiety disorder, unspecified; G47.00 Insomnia, unspecified; G47.33 Obstructive sleep apnea (adult) (pediatric); I11.0 Hypertensive heart disease with heart failure; I25.10 Atherosclerotic heart disease of native coronary artery without angina pectoris; I25.5 Ischemic cardiomyopathy; K59.00 Constipation, unspecified; K76.0 Fatty (change of) liver, not elsewhere classified; L24.1 Irritant contact dermatitis due to oils and greases; Z74.01 Bed confinement status; Z68.36 Body mass index [BMI] 36.0-36.9, adult; Z79.01 Long term (current) use of anticoagulants; Z79.82 Long term (current) use of aspirin; Z79.899 Other long term (current) drug therapy; Z86.711 Personal history of pulmonary embolism; Z90.10 Acquired absence of unspecified breast and nipple; Z90.710 Acquired absence of both cervix and uterus; Z91.19 Patient's noncompliance with other medical treatment and regimen; Z88.0 Allergy status to penicillin
CPT/HCPCS: 33990; 36415; 36430; 36600; 71045; 71046; 71260; 74177; 76705; 78226; 80048; 80053; 80061; 80202; 80339; 81001; 82247; 82248; 82330; 82435; 82550; 82803; 82947; 82948; 83036; 83605; 83735; 83874; 83880; 84100; 84132; 84295; 84484; 85018; 85025; 85027; 85347; 85384; 85610; 85651; 85730; 86140; 86850; 86900; 86901; 86922; 86927; 87040; 87071; 87088; 87205; 87804; 88304; 92610; 93005; 93306; 93308; 93458; 94002; 94003; 94150; 94640; 94664; 94667; 94668; 97039; A4218; A4351; A7048; A9537; C1757; C1894; C9113; J0171; J0282; J0461; J0583; J0610; J0713; J1100; J1250; J1265; J1644; J1650; J1815; J1940; J2001; J2150; J2185; J2250; J2370; J2704; J2720; J3010; J3370; J3475; J3480; J3490; J7030; J7040; J7070; J7512; P9012; P9016; P9017; P9034; P9045; P9047; Q9963; Q9967